=== PATIENT | female | born 1955 | race Caucasian/White ===

== ENCOUNTER 2017-09-12 09:28 | Inpatient (IN) | payer OTHER ==
[2017-09-12 15:07] LABS: Granulocyte Absolute (ANC) 4.45 (1.4-6.9); Hematocrit 48.1 % (35-47); Mean Cell Volume 103.2 fl (78-100); Mean Corpuscular Hemoglobin 34.3 pg (26-32); Mean Corpuscular Hgb Concent. 33.3 g/dl (32-36); Mean Platelet Volume 11.8 fl (6-9.5); Platelet Count 52 K/mm3 (150-450); Red Blood Count 4.66 M/mm3 (4.1-5.4); Red Cell Distribution Width 18.6 % (11.5-14.0)
[2017-09-12] MEDS ORDERED: TYLENOL 325 MG PO PRN (15:15)
[2017-09-12] MEDS ORDERED: Sodium Chloride 0.9% 10 ML FLUSH Syringe IJ PRN (15:15)
[2017-09-12] MEDS ORDERED: NovoLOG Insulin SQ PRN (15:17)
[2017-09-12] MEDS ORDERED: ENOXAPARIN SODIUM SQ SCH (15:30)
[2017-09-12 15:45] LABS: ALBUMIN 3.5 g/dL (3.5-5.0); ANION GAP 13.1 MEQ/L (5-15); BILIRUBIN,TOTAL 1.1 mg/dL (0.2-1.3); Calcium 11.5 mg/dL (8.4-10.2); Creatinine 1 1.08 mg/dL (0.52-1.04); Potassium 3.6 mmol/L (3.5-5.1); Total Protein 7.2 g/dL (6.3-8.2)
[2017-09-12 15:54] LABS: NT PRO BNP 56.8 pg/mL (0-900)
[2017-09-12] MEDS ORDERED: BUMEX 1 MG IV ONE (16:12)
[2017-09-12] MEDS ORDERED: NON-FORMULARY ITEM (Oxycodone Hcl/Acetaminophen [Percocet 7.5-325 Mg Tablet] 1 EACH) PO PRN (17:28)
[2017-09-12 18:31] LABS: Eosinophil 2 % (0.00-3.0); Lymphocytes 19 % (24-44); Monocyte 6 % (0.0-12.0); Neutrophils 73 % (36.0-66.0); Platelet Estimate DECREASED (NORMAL); Total Cells Counted 100
[2017-09-12] MEDS ORDERED: PERCOCET TABLET 5/325MG ONE ×2 (19:47→23:03)
[2017-09-12] MEDS: PERCOCET TABLET 5/325MG PO PRN ×2 (19:48→23:32)
[2017-09-12] MEDS ORDERED: NEURONTIN 300 MG ONE (20:58)
[2017-09-12] MEDS ORDERED: Glucophage XR 500 MG PO ONE (20:58)
[2017-09-12] MEDS ORDERED: Zanaflex 4 MG ONE (20:58)
[2017-09-12] MEDS ORDERED: ZOCOR 20MG ONE (20:59)
[2017-09-12] MEDS ORDERED: NEURONTIN 300 MG PO SCH (22:00)
[2017-09-12] MEDS ORDERED: NON-FORMULARY ITEM (Metformin Hcl [Metformin Hcl Er] 500 MG) PO SCH (22:00)
[2017-09-12] MEDS ORDERED: NON-FORMULARY ITEM (Gabapentin [Gabapentin] 600 MG) PO SCH (22:00)
[2017-09-12] MEDS ORDERED: Zanaflex 4 MG PO SCH (22:00)
[2017-09-12] MEDS ORDERED: ZOCOR 20MG PO SCH (22:00)
[2017-09-12] MEDS ORDERED: Glucophage XR 500 MG PO SCH (22:00)
[2017-09-12] MEDS: Sodium Chloride 0.9% 10 ML FLUSH Syringe IJ SCH (22:39)
[2017-09-13] MEDS ORDERED: PERCOCET TABLET 5/325MG ONE (05:24)
[2017-09-13] MEDS: Sodium Chloride 0.9% 10 ML FLUSH Syringe IJ SCH ×3 (05:27→21:53)
[2017-09-13] MEDS: PERCOCET TABLET 5/325MG PO PRN ×3 (05:28→21:52)
[2017-09-13 05:51] LABS: BASOPHIL % 0.8 % (0.0-0.4); Basophil (Absolute #) 0.03 (0-0.4); Eosinophil % 2.8 % (0.00-5.0); Eosinophil (Absolute #) 0.11 (0-0.5); Granulocyte Absolute (ANC) 2.36 (1.4-6.9); Granulocytes % 60.6 % (36.0-66.0); Hematocrit 38.5 % (35-47); Hemoglobin 13.3 gm/dl (12.0-16.0); Lymphocyte (Absolute #) 1.09 (1.0-4.6); Lymphocytes % 27.9 % (24.0-44.0); Mean Cell Volume 102.4 fl (78-100); Mean Corpuscular Hgb Concent. 34.5 g/dl (32-36); Mean Platelet Volume 12.2 fl (6-9.5); Monocyte (Absolute #) 0.31 (0.0-1.3); Monocytes % 7.9 % (0.0-12.0); Platelet Count 43 K/mm3 (150-450); Red Blood Count 3.76 M/mm3 (4.1-5.4); Red Cell Distribution Width 18.1 % (11.5-14.0); White Blood Count 3.9 K/mm3 (4.0-10.5)
[2017-09-13 05:52] LABS: Mean Corpuscular Hemoglobin 35.3 pg (26-32)
[2017-09-13 06:07] LABS: BLOOD UREA NITROGEN 8 mg/dL (7-17); CHLORIDE 106 mmol/L (98-107); Calcium 10.7 mg/dL (8.4-10.2); Carbon Dioxide 29 mmol/L (22-30); Creatinine 1 0.98 mg/dL (0.52-1.04); Glucose 174 mg/dL (74-106); Potassium 3.8 mmol/L (3.5-5.1); SODIUM 139 mmol/L (137-145)
[2017-09-13] MEDS ORDERED: SYNTHROID 75 MCG PO SCH ×2 (06:30→10:00)
[2017-09-13] MEDS ORDERED: SYNTHROID 150 MCG PO SCH ×2 (06:30→10:00)
[2017-09-13] MEDS ORDERED: TYLENOL 325 MG PO PRN (07:12)
[2017-09-13] MEDS ORDERED: NovoLOG Insulin SQ PRN (07:14)
[2017-09-13] MEDS ORDERED: Sodium Chloride 0.9% 10 ML FLUSH Syringe IJ PRN ×2 (07:15)
[2017-09-13 08:11] LABS: Slide Review 1 YES
--- NOTE | 2017-09-13 08:57 | PCM.NOTE ---
Date and Time: 09/13/17 0857 OBJECTIVE DATA Vital Signs: Vital Signs - 24 hr Temp Pulse Resp BP Pulse Ox 09/13/17 07:22 96.1 F 50 L 18 107/63 90 L 09/13/17 04:00 97.9 F 65 19 106/67 90 L 09/13/17 00:00 97.7 F 80 19 137/75 92 L 09/12/17 19:43 97.9 F 75 16 146/64 94 L 09/12/17 16:20 98.0 F 68 18 118/65 91 L 09/12/17 14:35 97.6 F 85 18 162/81 96 09/12/17 14:29 97.6 F 85 18 162/81 96 09/12/17 14:20 97.6 F 85 18 162/81 96 Oxygen-Last 24 hours O2 Percentage 2 Liters = 28% O2 Percentage 2 Liters = 28% Pain Assessment - Last Documented Pain Intensity 5 Pain Scale Used 0-10 Pain Scale,FLACC Intake and Output: Intake & Output 09/11/17 09/12/17 09/13/17 09/14/17 06:59 06:59 06:59 06:59 Intake Total 600 Output Total 1000 Balance -400 Weight 165.1 kg Lab Results: Accuchecks Date 09/12/17 Date 09/12/17 Date 09/12/17 Time 07:30 Time 22:00 Time 16:30 Accucheck Value: 160 Accucheck Value: 177 Accucheck Value: 146 Lab Results-Last 24 Hours 09/12/17 09/12/17 09/12/17 Range/Units 15:00 15:00 15:00 WBC 6.0 (4.0-10.5) K/mm3 RBC 4.66 (4.1-5.4) M/mm3 Hgb 16.0 (12.0-16.0) gm/dl Hct 48.1 H (35-47) % MCV 103.2 H (78-100) fl MCH 34.3 H (26-32) pg MCHC 33.3 (32-36) g/dl RDW 18.6 H (11.5-14.0) % Plt Count 52 L (150-450) K/mm3 MPV 11.8 H (6-9.5) fl Gran % (36.0-66.0) % Eos # (Auto) (0-0.5) Absolute Lymphs (auto) (1.0-4.6) Absolute Monos (auto) (0.0-1.3) Lymphocytes % (24.0-44.0) % Monocytes % (0.0-12.0) % Eosinophils % (0.00-5.0) % Basophils % (0.0-0.4) % Absolute Granulocytes 4.45 (1.4-6.9) Segmented Neutrophils 73 H (36.0-66.0) % Lymphocytes (Manual) 19 L (24-44) % Monocytes (Manual) 6 (0.0-12.0) % Eosinophils (Manual) 2 (0.00-3.0) % Basophils # (0-0.4) Platelet Estimate DECREASED (NORMAL) RBC Morphology NORMAL Sodium 141 (137-145) mmol/L Potassium 3.6 (3.5-5.1) mmol/L Chloride 105 (98-107) mmol/L Carbon Dioxide 27 (22-30) mmol/L Anion Gap 13.1 (5-15) MEQ/L BUN 8 (7-17) mg/dL Creatinine 1.08 H (0.52-1.04) mg/dL Estimated GFR 54.3 ML/MIN Glucose 196 H (74-106) mg/dL Hemoglobin A1c (4.5-6.0) % Calcium 11.5 H (8.4-10.2) mg/dL Total Bilirubin 1.10 (0.2-1.3) mg/dL AST 34 (14-36) U/L ALT 19 (0-35) U/L Alkaline Phosphatase 142 H (38-126) U/L NT-Pro-B Natriuret Pep 56.8 (0-900) pg/mL Serum Total Protein 7.2 (6.3-8.2) g/dL Albumin 3.5 (3.5-5.0) g/dL TSH 3rd Generation 254.000 H (0.47-4.68) mIU/L Slides for Path Review 09/12/17 09/13/17 09/13/17 Range/Units 15:00 05:12 05:12 WBC 3.9 L (4.0-10.5) K/mm3 RBC 3.76 L (4.1-5.4) M/mm3 Hgb 13.3 (12.0-16.0) gm/dl Hct 38.5 (35-47) % MCV 102.4 H (78-100) fl MCH 35.3 H (26-32) pg MCHC 34.5 (32-36) g/dl RDW 18.1 H (11.5-14.0) % Plt Count 43 L (150-450) K/mm3 MPV 12.2 H (6-9.5) fl Gran % 60.6 (36.0-66.0) % Eos # (Auto) 0.11 (0-0.5) Absolute Lymphs (auto) 1.09 (1.0-4.6) Absolute Monos (auto) 0.31 (0.0-1.3) Lymphocytes % 27.9 (24.0-44.0) % Monocytes % 7.9 (0.0-12.0) % Eosinophils % 2.8 (0.00-5.0) % Basophils % 0.8 (0.0-0.4) % Absolute Granulocytes 2.36 (1.4-6.9) Segmented Neutrophils (36.0-66.0) % Lymphocytes (Manual) (24-44) % Monocytes (Manual) (0.0-12.0) % Eosinophils (Manual) (0.00-3.0) % Basophils # 0.03 (0-0.4) Platelet Estimate (NORMAL) RBC Morphology Sodium 139 (137-145) mmol/L Potassium 3.8 (3.5-5.1) mmol/L Chloride 106 (98-107) mmol/L Carbon Dioxide 29 (22-30) mmol/L Anion Gap 8.0 (5-15) MEQ/L BUN 8 (7-17) mg/dL Creatinine 0.98 (0.52-1.04) mg/dL Estimated GFR > 60.0 ML/MIN Glucose 174 H (74-106) mg/dL Hemoglobin A1c 9.68 H (4.5-6.0) % Calcium 10.7 H (8.4-10.2) mg/dL Total Bilirubin (0.2-1.3) mg/dL AST (14-36) U/L ALT (0-35) U/L Alkaline Phosphatase (38-126) U/L NT-Pro-B Natriuret Pep (0-900) pg/mL Serum Total Protein (6.3-8.2) g/dL Albumin (3.5-5.0) g/dL TSH 3rd Generation (0.47-4.68) mIU/L Slides for Path Review YES
[2017-09-13] MEDS ORDERED: Protonix 40MG Tablet PO SCH (10:00)
[2017-09-13] MEDS ORDERED: NON-FORMULARY ITEM (Simvastatin 40 Mg [Zocor 40 Mg] 40 MG) PO SCH (10:00)
[2017-09-13] MEDS ORDERED: NON-FORMULARY ITEM (Omeprazole 20 Mg [Prilosec 20 Mg] 20 MG) PO SCH (10:00)
[2017-09-13] MEDS ORDERED: SYNTHROID 88 MCG PO SCH (10:00)
[2017-09-13] MEDS ORDERED: Glucotrol Xl 10 MG PO SCH (10:00)
[2017-09-13] MEDS ORDERED: Klor Con 10 MEQ PO SCH (10:00)
[2017-09-13] MEDS ORDERED: Colace 100 MG PO SCH (10:00)
[2017-09-13] MEDS ORDERED: Paxil 20 MG PO SCH (10:00)
[2017-09-13] MEDS: Glucotrol Xl 10 MG PO SCH (10:17)
[2017-09-13] MEDS: Paxil 20 MG PO SCH (10:17)
[2017-09-13] MEDS: Colace 100 MG PO SCH (10:17)
[2017-09-13] MEDS: NEURONTIN 300 MG PO SCH ×4 (10:17→21:51)
[2017-09-13] MEDS: Klor Con 10 MEQ PO SCH (10:17)
--- NOTE | 2017-09-13 13:33 | HP ---
HISTORY OF PRESENT ILLNESS: This is a 62 year-old patient of mine who presented to the clinic on 09/12/2017. She came with her . They reported increasing problems with lower extremity edema and blisters. She was seen in the [facility] Emergency Department for this on 09/09/2017 and reports they gave her antibiotic which they were not sure what it was. I later obtained records from [facility] Emergency Room that said she was placed on Clindamycin and told that she had cellulitis. She was sent home. She has home health care at home right now from [facility]. A message had been left from Soo from there wanting a wound care referral for her on 09/11/2017. Also reporting that she had a fall and the EMT's had to come and get her up off the floor. The home health care nurse stated that Delmy was not getting the care that she needs, not checking her blood sugar, not making it to the bathroom regularly and not getting proper nutrition. They also stated that home health care is not being reimbursed by the insurance company and they may have to discharge her for this reason. The patient and her reported that the blisters on both of her feet have gotten bigger. They are on the top of her feet. She denied any fever. She has not had any drainage from her feet but had a little drainage from the lateral side of her left leg. The patient reported that she had fallen twice at home and that her equilibrium seemed to be off and she is unable to stand on her own. The patient reports that she has both a walker and a wheelchair at home. She also reported that she had some diarrhea at home and states that it was just for one day and before that she had not had problems with diarrhea. The patient reports that her medications come in blister packs and that she has been taking them but they do have a hard time giving a list of her current medication. We were able to obtain a list from her pharmacy and our clinic chart. REVIEW OF SYSTEMS: The patient reports she has chronic pain in her knees, back and all over for which she sees painter mirror for here at [facility] and they are prescribing her current pain medications. She has fatigue, dry skin. No chest pain. Shortness of breath with exertion. Edema of her lower extremities. No difficulty urinating. She had large blisters on her feet. PAST MEDICAL HISTORY: Arthritis in her knees. Coronary artery disease with myocardial infarction in November 2010. She has seen Dr. Holland in the past. Diabetes mellitus type 2 uncontrolled. Fibromyalgia. Hypertension. Hypothyroidism. Obesity. Gastroesophageal reflux disease. Chronic knee and back pain. History of thrombocytopenia which she is seeing Dr. Hearn for. Osteoporosis on DEXA scan 01/11/2017. Hyperparathyroidism for which she sees spray cementer, Dr. Adrien Daniel in [place], [place]. Neuropathy. PAST SURGICAL HISTORY: section. Cholecystectomy. Hysterectomy. Bilateral oophorectomy. Left knee replacement 07/29/2015. Right knee replacement 1988. Gastroplasty. MEDICATIONS: Bumetanide 2 mg every day, Clindamycin 300 mg four times a day, gabapentin 600 mg four times a day, Glipizide Extended Release 10 mg daily, levothyroxine 375 mcg daily, Metformin Extended Release 1 tablet twice a day, naproxen 500 mg t.i.d., Nitrostat 0.4 mg sublingual every 5 minutes as needed for pain with maximum of three doses, Nystatin powder to the affected area b.i.d., omeprazole 20 mg p.o. daily, oxycodone with acetaminophen 7.5/325 mg 1 tablet every six hours as needed, paroxetine 20 mg p.o. daily, potassium chloride 10 mEq daily, Simvastatin 40 mg daily, tizanidine 4 mg b.i.d., Ventolin HFA 2 puffs every four hours as needed, vitamin D 50,000 units p.o. daily. ALLERGIES: DURAGESIC, LOMOTIL, PENICILLIN. SOCIAL HISTORY: She is and lives with her . She smokes one pack per day. She denies any alcohol or drug use. She states she has no interest in quitting smoking as this is the only thing she has left. FAMILY HISTORY: Noncontributory. PHYSICAL EXAMINATION: VITAL SIGNS: Temperature current 96.1F, temperature max 98.0F, heart rate 50 to 85, respiratory rate 16 to 19, blood pressure 106 to 162 over 63 to 81. Oxygen saturation 90 to 96% on room air to 2 liters nasal cannula. GENERAL: The patient is a pleasant lady sitting up in bed in no acute distress. She is morbidly obese. CVS: She has a regular rate and rhythm. No murmurs, gallops or rubs. CHEST: Clear to auscultation bilaterally with decreased breath sounds at the bases. No crackles or wheezes are appreciated. ABDOMEN: Obese, soft, nontender, nondistended with normal bowel sounds. EXTREMITIES: She has +1 edema to her knees bilaterally. Thick and dry skin. Long thickened toenails. There are pictures on her chart of the blisters on top of her feet bilaterally. These were debrided by PT yesterday and pictures taken afterwards as well. These blisters are quite large measuring 12 x 9 cm on top of her right foot and 6 x 4.5 cm on the left foot. Her left lower leg has some serous drainage from the small scratch on the lateral aspect of her calf. LABORATORY DATA AND TESTS: White blood cell count was 6.0 on admission and 3.9 this a.m. PLT count 43,000. Hemoglobin A1C 9.6, calcium 10.7. TSH 254. She has a wound culture in lab from the top of the left foot. ASSESSMENT AND PLAN: 1) SEVERE HYPOTHYROIDISM WITH MYXEDEMA OF HER LOWER EXTREMITIES MOST LIKELY RESULTING IN THE SKIN BULLAE: Her TSH has been high for about two years now and at one time we were able to get it lowered. In the past she had told me she was not taking her medications. She was given 375 mcg of levothyroxine this a.m. an hour before eating or taking any other medications with a small sip of fluid. Will continue with the levothyroxine. I sent blood tests to screen for celiac disease to check for malabsorption. I discontinued her proton pump inhibitor. It may have interfering with her absorption if she was taking her medications. She has seen an spray cementer as an outpatient and will have her continue to follow up with him when she is able to. 2) SKIN BULLAE: PT was consulted and saw the patient and debrided these as they were quite large and tense. They are covered with dressing. Will continue to monitor for any changes. Her white blood cell count was normal. She has not had any fevers. No other signs of cellulitis so I discontinued any antibiotics at this time. 3) HISTORY OF DIARRHEA: I have ordered Clostridium difficile but this is uncollected as she has not had any more diarrhea at this time. 4) UNSTEADY GAIT: PT again was consulted. The patient does state she has a trouble taking care of herself at home and is thinking about long-term placement in a custodial where she can have help with her care. 5) DIABETES MELLITUS TYPE 2: She is uncontrolled. She has been noncompliant in the past. Her hemoglobin A1C continues to be elevated. Will use a low dose of NovoLog sliding scale and glipizide and hold her Metformin at this time. 6) HYPERPARATHYROIDISM: She has a known diagnosis of this with adenomas. Food Processing Scientist has been trying to coordinate with a surgeon for removal of the adenoma but this has not been accomplished yet at this time. 7) CHRONIC PAIN IN HER KNEES AND BACK: Will continue with her home pain medication. 8) HYPERTENSION: This is currently well controlled. 9) HISTORY OF CORONARY ARTERY DISEASE: Will continue with her home medications. 10) HISTORY OF THROMBOCYTOPENIA: She has been following with Dr. Hearn as an outpatient and her PLT count has been stable and holding Lovenox for deep venous thrombosis prophylaxis due to lower PLT count. She does not have any signs of bleeding at this time.
[2017-09-13] MEDS: Zanaflex 4 MG PO SCH (21:51)
[2017-09-13] MEDS: ZOCOR 20MG PO SCH (21:52)
[2017-09-14] MEDS: SYNTHROID 75 MCG PO SCH (05:47)
[2017-09-14] MEDS: SYNTHROID 150 MCG PO SCH (05:47)
[2017-09-14 06:53] LABS: ANION GAP 8.3 MEQ/L (5-15); BLOOD UREA NITROGEN 10 mg/dL (7-17); CHLORIDE 107 mmol/L (98-107); Carbon Dioxide 28 mmol/L (22-30); Creatinine 1 0.86 mg/dL (0.52-1.04); Glucose 105 mg/dL (74-106); Potassium 4.2 mmol/L (3.5-5.1); SODIUM 139 mmol/L (137-145)
[2017-09-14] MEDS: NEURONTIN 300 MG PO SCH ×4 (09:22→22:31)
[2017-09-14] MEDS: Sodium Chloride 0.9% 10 ML FLUSH Syringe IJ SCH ×3 (09:23→22:32)
[2017-09-14] MEDS: Paxil 20 MG PO SCH (09:23)
[2017-09-14] MEDS: Klor Con 10 MEQ PO SCH (09:23)
[2017-09-14] MEDS: Colace 100 MG PO SCH (09:23)
[2017-09-14] MEDS: Glucotrol Xl 10 MG PO SCH (09:23)
--- NOTE | 2017-09-14 09:47 | PCM.NOTE ---
Date and Time: 09/14/17940 Subjective Assessment: Patient reports pain over the top of her feet where the blisters were debrided by PT. She reports a poor appetite today. Discharge planning states we are waiting to hear from [facility] about placement there for further care. - Review of Systems Constitutional: Fatigue Eyes: No Symptoms Ears, Nose, & Throat: No Symptoms Respiratory: No Symptoms Cardiac: No Symptoms Abdominal/Gastrointestinal: No Symptoms Genitourinary Symptoms: No Symptoms Musculoskeletal: No Symptoms Skin: Other (pain on top of feet) Objective Exam General Appearance: no apparent distress, obese Neurologic Exam: alert, cooperative, normal mood/affect Skin Exam: normal color, warm, other (large denuded areas on top of feet bilat ( see pictures in chart) no surrounding erythema; chronic discoloration of lower extremities bilat) Respiratory Exam: normal breath sounds, other (few scattered wheezes, equal breath sounds) Cardiovascular Exam: regular rate/rhythm, normal heart sounds, No murmur, No friction rub, No gallop Gastrointestinal/Abdomen Exam: soft, normal bowel sounds, No tenderness, No distention, No mass, No guarding Extremity Exam: other (+2 edema to mid shins bilat) OBJECTIVE DATA Vital Signs: Vital Signs - 24 hr Temp Pulse Resp BP Pulse Ox 09/14/17 07:22 98.4 F 54 L 20 145/68 95 09/14/17 04:00 97.7 F 53 L 18 134/79 94 L 09/14/17 00:00 98.1 F 54 L 14 127/75 96 09/13/17 22:00 147/71 09/13/17 21:34 94 L 09/13/17 20:00 97.4 F 95 H 16 171/82 95 09/13/17 16:00 97.6 F 56 L 19 136/82 94 L 09/13/17 12:00 97.5 F 59 L 20 122/67 93 L Oxygen-Last 24 hours O2 Percentage 2 Liters = 28% O2 Percentage 2 Liters = 28% O2 Percentage 2 Liters = 28% O2 Percentage 2 Liters = 28% O2 Percentage 2 Liters = 28% Pain Assessment - Last Documented Pain Intensity 4 Pain Scale Used 0-10 Pain Scale Intake and Output: Intake & Output 09/12/17 09/13/17 09/14/17 09/15/17 06:59 06:59 06:59 06:59 Intake Total 600 640 360 Output Total 1000 Balance -400 640 360 Weight 165.1 kg Lab Results: Accuchecks Date 09/14/17 Date 09/13/17 Date 09/13/17 Date 09/13/17 Time 07:42 Time 23:00 Time 16:30 Time 11:52 Accucheck Value: 94 Accucheck Value: 85 Accucheck Value: 168 Accucheck Value: 160 Lab Results-Last 24 Hours 09/14/17 Range/Units 05:15 Sodium 139 (137-145) mmol/L Potassium 4.2 (3.5-5.1) mmol/L Chloride 107 (98-107) mmol/L Carbon Dioxide 28 (22-30) mmol/L Anion Gap 8.3 (5-15) MEQ/L BUN 10 (7-17) mg/dL Creatinine 0.86 (0.52-1.04) mg/dL Estimated GFR > 60.0 ML/MIN Glucose 105 (74-106) mg/dL Calcium 11.0 H (8.4-10.2) mg/dL Multi-Disciplinary Progress Notes: Multi-Disciplinary Progress Notes 09/13/17 16:00 (created 09/14/17 08:28) Case Management Note by Yajaira Ricketts FROM [facility], REPORTS THAT THEY ARE PLANNING TO ACCEPT PT PROVIDING THAT HER INSURANCE WILL AUTHORIZE A STAY. Initialized on 09/14/17 08:28 - END OF NOTE 09/13/17 14:40 (created 09/13/17 15:55) Case Management Note by Yajaira Ricketts from [facility] here for assessment. Initialized on 09/13/17 15:55 - END OF NOTE 09/13/17 13:54 Case Management Note by Kaylee Elaine LEVEL I WEB APPROVED AND PLACED ON PAPER CHART. Initialized on 09/13/17 13:54 - END OF NOTE Assessment/Plan (1) Severe hypothyroidism Current Visit: Yes Status: Acute Assessment & Plan: Levothyroxine has been restarted and patient to get this 1 hour before breakfast or any other medications or fluids. Plan to recheck TSH 3-4 weeks. Code(s): E03.8 - OTHER SPECIFIED HYPOTHYROIDISM (2) Skin bulla Current Visit: Yes Status: Acute Assessment & Plan: s/p debridement. Continue care by PT. Code(s): R23.8 - OTHER SKIN CHANGES (3) Unsteady gait Current Visit: Yes Status: Acute Assessment & Plan: PT has accessed patient. Code(s): R26.81 - UNSTEADINESS ON FEET (4) DM w/o complication type II Current Visit: Yes Status: Acute Assessment & Plan: continue novolog low dose sliding scale. Continue glipizide. Metformin currently held. Code(s): E11.9 - TYPE 2 DIABETES MELLITUS WITHOUT COMPLICATIONS (5) Hyperparathyroidism Current Visit: Yes Status: Acute Assessment & Plan: She has been seeing Professor Of Forest Planning, Dr. Daniel as outpatient. Code(s): E21.3 - HYPERPARATHYROIDISM, UNSPECIFIED (6) Chronic pain of both knees Current Visit: Yes Status: Acute Code(s): M25.561 - PAIN IN RIGHT KNEE; M25.562 - PAIN IN LEFT KNEE; G89.29 - OTHER CHRONIC PAIN (7) Essential hypertension Current Visit: Yes Status: Acute Code(s): I10 - ESSENTIAL (PRIMARY) HYPERTENSION (8) Myxedema Current Visit: Yes Status: Acute Code(s): E03.9 - HYPOTHYROIDISM, UNSPECIFIED (9) History of thrombocytopenia Current Visit: Yes Status: Acute Code(s): Z86.2 - PRSNL HISTORY OF DIS OF THE BLD/BLD-FORM ORG/IMMUN MECHNSM
[2017-09-14 09:49] LABS: IGA QUANTITATIVE 475 mg/dL (70-400)
[2017-09-14 16:03] LABS: T-TRANSGLUTAMINASE IGA <0.5 U/mL (0.0-14.9)
[2017-09-14] MEDS: ZOCOR 20MG PO SCH (22:30)
[2017-09-14] MEDS: Zanaflex 4 MG PO SCH (22:31)
[2017-09-15] MEDS ORDERED: D50W 50 ml Abboject IV PRN (01:38)
[2017-09-15 06:20] LABS: ANION GAP 8.3 MEQ/L (5-15); BLOOD UREA NITROGEN 9 mg/dL (7-17); CHLORIDE 107 mmol/L (98-107); Calcium 11.3 mg/dL (8.4-10.2); Carbon Dioxide 30 mmol/L (22-30); Creatinine 1 0.79 mg/dL (0.52-1.04); Glucose 74 mg/dL (74-106); SODIUM 141 mmol/L (137-145)
[2017-09-15] MEDS: SYNTHROID 150 MCG PO SCH (06:38)
[2017-09-15] MEDS: Sodium Chloride 0.9% 10 ML FLUSH Syringe IJ SCH ×3 (06:38→22:16)
[2017-09-15] MEDS: SYNTHROID 75 MCG PO SCH (06:38)
--- NOTE | 2017-09-15 09:07 | PCM.NOTE ---
Date and Time: 09/15/17906 Subjective Assessment: Patient reports continued low appetite and pain over the tops of her feet. She had an episode of hypoglycemia last night that required an amp of D50. She states nothing looks good to eat. She denies any abdominal pain, no shortness of breath, no chest pain. - Review of Systems Constitutional: No Symptoms Eyes: No Symptoms Ears, Nose, & Throat: No Symptoms Respiratory: No Symptoms Cardiac: No Symptoms Abdominal/Gastrointestinal: No Symptoms Genitourinary Symptoms: No Symptoms Musculoskeletal: Other (swelling of lower extremities with very mild redness) Skin: Other (bandage over top of feet bilat) Objective Exam General Appearance: no apparent distress, obese Neurologic Exam: alert, cooperative, normal mood/affect Skin Exam: normal color, warm, other (bandage over top of feet bilat, mild erythema of feet from ankles to knees) Cardiovascular Exam: regular rate/rhythm, No murmur, No friction rub, No gallop Gastrointestinal/Abdomen Exam: soft, normal bowel sounds, No tenderness, No distention, No mass OBJECTIVE DATA Vital Signs: Vital Signs - 24 hr Temp Pulse Resp BP Pulse Ox 09/15/17 07:21 56 L 16 96 09/15/17 07:15 98.2 F 66 20 116/58 96 09/15/17 04:00 97.7 F 52 L 20 126/65 94 L 09/15/17 00:00 97.6 F 53 L 18 106/64 93 L 09/14/17 20:33 93 L 09/14/17 20:00 98.4 F 52 L 18 141/78 93 L 09/14/17 16:30 98 F 74 20 157/80 93 L 09/14/17 12:27 97.8 F 68 20 163/88 94 L Oxygen-Last 24 hours O2 Percentage 2 Liters = 28% O2 Percentage 2 Liters = 28% O2 Percentage 2 Liters = 28% Pain Assessment - Last Documented Pain Intensity 0 Pain Scale Used 0-10 Pain Scale Intake and Output: Intake & Output 09/13/17 09/14/17 09/15/17 09/16/17 06:59 06:59 06:59 06:59 Intake Total 600 640 980 240 Output Total 1000 1200 1000 Balance -400 640 -220 -760 Weight 165.1 kg 165.5 kg Lab Results: Accuchecks Date 09/15/17 Date 09/15/17 Date 09/15/17 Date 09/14/17 Date 09/14/17 Time 07:27 Time 03:30 Time 00:23 Time 16:09 Time 12:21 Accucheck Value: 69 Accucheck Value: 83 Accucheck Value: 67 Accucheck Value: 67 Accucheck Value: 70 Accucheck Value: 77 Lab Results-Last 24 Hours 09/13/17 09/15/17 Range/Units 05:12 05:18 Sodium 141 (137-145) mmol/L Potassium 4.0 (3.5-5.1) mmol/L Chloride 107 (98-107) mmol/L Carbon Dioxide 30 (22-30) mmol/L Anion Gap 8.3 (5-15) MEQ/L BUN 9 (7-17) mg/dL Creatinine 0.79 (0.52-1.04) mg/dL Estimated GFR > 60.0 ML/MIN Glucose 74 (74-106) mg/dL Calcium 11.3 H (8.4-10.2) mg/dL IgA 475 H (70-400) mg/dL Tiss Transglutamin IgA <0.5 (0.0-14.9) U/mL Assessment/Plan (1) Severe hypothyroidism Current Visit: Yes Status: Acute Assessment & Plan: Continue levothyroxine 1 hour before other meds or breakfast. Plan to recheck TSH in 3-6 weeks. Code(s): E03.8 - OTHER SPECIFIED HYPOTHYROIDISM (2) Skin bulla Current Visit: Yes Status: Acute Assessment & Plan: Continue with PT. Code(s): R23.8 - OTHER SKIN CHANGES (3) Unsteady gait Current Visit: Yes Status: Acute Assessment & Plan: Continue with PT. Code(s): R26.81 - UNSTEADINESS ON FEET (4) DM w/o complication type II Current Visit: Yes Status: Acute Assessment & Plan: Oral hypoglycemics stopped. She has a low dose sliding scale ordered as needed. Code(s): E11.9 - TYPE 2 DIABETES MELLITUS WITHOUT COMPLICATIONS (5) Hyperparathyroidism Current Visit: Yes Status: Acute Assessment & Plan: She has been seen by Dr. Daniel in [place] and was referred for surgery, but she has not had this done yet. Code(s): E21.3 - HYPERPARATHYROIDISM, UNSPECIFIED (6) Chronic pain of both knees Current Visit: Yes Status: Acute Assessment & Plan: Continue current pain medication. Code(s): M25.561 - PAIN IN RIGHT KNEE; M25.562 - PAIN IN LEFT KNEE; G89.29 - OTHER CHRONIC PAIN (7) Essential hypertension Current Visit: Yes Status: Acute Code(s): I10 - ESSENTIAL (PRIMARY) HYPERTENSION (8) Myxedema Current Visit: Yes Status: Acute Code(s): E03.9 - HYPOTHYROIDISM, UNSPECIFIED (9) History of thrombocytopenia Current Visit: Yes Status: Acute Assessment & Plan: Stable and at her baseline. No lovenox for DVT prophylaxis due to this. Code(s): Z86.2 - PRSNL HISTORY OF DIS OF THE BLD/BLD-FORM ORG/IMMUN MECHNSM
[2017-09-15 09:39] LABS: BASOPHIL % 0.5 % (0.0-0.4); Basophil (Absolute #) 0.02 (0-0.4); Eosinophil % 1.8 % (0.00-5.0); Eosinophil (Absolute #) 0.08 (0-0.5); Granulocyte Absolute (ANC) 2.87 (1.4-6.9); Granulocytes % 65.4 % (36.0-66.0); Hematocrit 43.8 % (35-47); Hemoglobin 14.6 gm/dl (12.0-16.0); Lymphocyte (Absolute #) 1.08 (1.0-4.6); Lymphocytes % 24.6 % (24.0-44.0); Mean Cell Volume 103.5 fl (78-100); Mean Corpuscular Hemoglobin 34.5 pg (26-32); Mean Corpuscular Hgb Concent. 33.3 g/dl (32-36); Mean Platelet Volume 11.5 fl (6-9.5); Monocyte (Absolute #) 0.34 (0.0-1.3); Monocytes % 7.7 % (0.0-12.0); Platelet Count 44 K/mm3 (150-450); Red Blood Count 4.23 M/mm3 (4.1-5.4); Red Cell Distribution Width 18.3 % (11.5-14.0); White Blood Count 4.4 K/mm3 (4.0-10.5)
[2017-09-15] MEDS: Paxil 20 MG PO SCH (09:47)
[2017-09-15] MEDS: Colace 100 MG PO SCH (09:47)
[2017-09-15] MEDS: NEURONTIN 300 MG PO SCH ×4 (09:47→22:11)
[2017-09-15] MEDS: PERCOCET TABLET 5/325MG PO PRN ×3 (09:50→22:13)
[2017-09-15] MEDS: ZOCOR 20MG PO SCH (22:11)
[2017-09-15] MEDS: Zanaflex 4 MG PO SCH (22:11)
[2017-09-16] MEDS: SYNTHROID 150 MCG PO SCH (05:31)
[2017-09-16] MEDS: Sodium Chloride 0.9% 10 ML FLUSH Syringe IJ SCH ×3 (05:31→21:51)
[2017-09-16] MEDS: SYNTHROID 75 MCG PO SCH (05:31)
[2017-09-16 05:53] LABS: BASOPHIL % 0.7 % (0.0-0.4); Basophil (Absolute #) 0.03 (0-0.4); Eosinophil % 1.4 % (0.00-5.0); Eosinophil (Absolute #) 0.06 (0-0.5); Granulocyte Absolute (ANC) 2.75 (1.4-6.9); Hematocrit 40.4 % (35-47); Hemoglobin 13.3 gm/dl (12.0-16.0); Lymphocyte (Absolute #) 1.12 (1.0-4.6); Lymphocytes % 25.7 % (24.0-44.0); Mean Cell Volume 104.1 fl (78-100); Mean Corpuscular Hgb Concent. 32.9 g/dl (32-36); Monocytes % 9.2 % (0.0-12.0); Platelet Count 42 K/mm3 (150-450); Red Blood Count 3.88 M/mm3 (4.1-5.4); Red Cell Distribution Width 17.9 % (11.5-14.0); White Blood Count 4.4 K/mm3 (4.0-10.5)
[2017-09-16 05:57] LABS: Mean Corpuscular Hemoglobin 34.2 pg (26-32)
[2017-09-16 06:15] LABS: ANION GAP 6.1 MEQ/L (5-15); BLOOD UREA NITROGEN 9 mg/dL (7-17); CHLORIDE 107 mmol/L (98-107); Calcium 10.7 mg/dL (8.4-10.2); Carbon Dioxide 30 mmol/L (22-30); Creatinine 1 0.83 mg/dL (0.52-1.04); Glucose 118 mg/dL (74-106); Potassium 4.1 mmol/L (3.5-5.1); SODIUM 139 mmol/L (137-145)
[2017-09-16] MEDS: PERCOCET TABLET 5/325MG PO PRN (09:21)
[2017-09-16] MEDS: Paxil 20 MG PO SCH (09:21)
[2017-09-16] MEDS: Colace 100 MG PO SCH (09:21)
[2017-09-16] MEDS: NEURONTIN 300 MG PO SCH ×4 (09:21→21:50)
--- NOTE | 2017-09-16 09:34 | PCM.NOTE ---
Date and Time: 09/16/17928 Subjective Assessment: the pain in the feet and legs seems to be worsening and the legs are reported as more red hot and tender today. she has not had fever but feels nauseated and no appetite. She is not eating much Objective Exam General Appearance: no apparent distress, alert, obese Neurologic Exam: alert, oriented x 3, cooperative, normal mood/affect, nml cerebellar function, sensation nml, No motor deficits Skin Exam: normal color, warm, dry Eye Exam: PERRL, EOMI, eyes nml inspection Ears, Nose, Throat Exam: normal ENT inspection, pharynx normal, moist mucous membranes Neck Exam: normal inspection, non-tender, supple, full range of motion Respiratory Exam: normal breath sounds, lungs clear, No respiratory distress Cardiovascular Exam: regular rate/rhythm, normal heart sounds Gastrointestinal/Abdomen Exam: soft, No tenderness, No mass Extremity Exam: other (the dorsal aspect of the feet show good granulation tissue under the old blisters and the compression on them has helped improve the redness and swelling but the bilateral lower legs are reported as more red the are currently tender red swollen and hot bilaterally with blistering of the skin and chronic dermatitis changes.) Pelvic Exam: deferred Rectal Exam: deferred OBJECTIVE DATA Vital Signs: Vital Signs - 24 hr Temp Pulse Resp BP Pulse Ox 09/16/17 07:26 98.3 F 53 L 18 123/65 94 L 09/16/17 04:00 98.1 F 56 L 18 100/63 94 L 09/15/17 23:49 98.0 F 54 L 16 149/66 92 L 09/15/17 20:00 98.6 F 67 20 177/83 91 L 09/15/17 19:24 91 L 09/15/17 16:13 98.1 F 80 20 126/77 94 L 09/15/17 12:31 98.2 F 88 20 118/68 94 L Oxygen-Last 24 hours O2 Percentage 2 Liters = 28% O2 Percentage 2 Liters = 28% Pain Assessment - Last Documented Pain Intensity 8 Pain Scale Used 0-10 Pain Scale Intake and Output: Intake & Output 09/13/17 09/14/17 09/15/17 09/16/17 11:59 11:59 11:59 11:59 Intake Total 840 760 980 480 Output Total 1000 2200 1100 Balance -160 760 -1220 -620 Weight 165.1 kg 165.5 kg 163.6 kg Lab Results: Accuchecks Date 09/16/17 Date 09/15/17 Date 09/15/17 Date 09/15/17 Time 07:30 Time 22:00 Time 16:35 Time 11:00 Accucheck Value: 98 Accucheck Value: 100 Accucheck Value: 97 Accucheck Value: 90 Lab Results-Last 24 Hours 09/15/17 09/16/17 09/16/17 Range/Units 05:00 05:44 05:44 WBC 4.4 4.4 (4.0-10.5) K/mm3 RBC 4.23 3.88 L (4.1-5.4) M/mm3 Hgb 14.6 13.3 (12.0-16.0) gm/dl Hct 43.8 40.4 (35-47) % MCV 103.5 H 104.1 H (78-100) fl MCH 34.5 H 34.2 H (26-32) pg MCHC 33.3 32.9 (32-36) g/dl RDW 18.3 H 17.9 H (11.5-14.0) % Plt Count 44 L 42 L (150-450) K/mm3 MPV 11.5 H 11.0 H (6-9.5) fl Gran % 65.4 63.0 (36.0-66.0) % Eos # (Auto) 0.08 0.06 (0-0.5) Absolute Lymphs (auto) 1.08 1.12 (1.0-4.6) Absolute Monos (auto) 0.34 0.40 (0.0-1.3) Lymphocytes % 24.6 25.7 (24.0-44.0) % Monocytes % 7.7 9.2 (0.0-12.0) % Eosinophils % 1.8 1.4 (0.00-5.0) % Basophils % 0.5 0.7 (0.0-0.4) % Absolute Granulocytes 2.87 2.75 (1.4-6.9) Basophils # 0.02 0.03 (0-0.4) Sodium 139 (137-145) mmol/L Potassium 4.1 (3.5-5.1) mmol/L Chloride 107 (98-107) mmol/L Carbon Dioxide 30 (22-30) mmol/L Anion Gap 6.1 (5-15) MEQ/L BUN 9 (7-17) mg/dL Creatinine 0.83 (0.52-1.04) mg/dL Estimated GFR > 60.0 ML/MIN Glucose 118 H (74-106) mg/dL Calcium 10.7 H (8.4-10.2) mg/dL Slides for Path Review Multi-Disciplinary Progress Notes: Multi-Disciplinary Progress Notes 09/15/17 09:30 (created 09/15/17 12:19) Case Management Note by Yajaira Ricketts REVIEWED DISCHARGE PLAN WITH PT. REPORTS THAT SHE IS STILL PLANNING TO TRANSITION TO [facility] IF HER INSURANCE ALLOWS. CONTINUE TO AWAIT PRECERT. SPOKE WITH RUTH ANN @ [place], REPORTS THAT SHE HAS CALLED INSURANCE AND THEY REPORT IT IS STILL PENDING. THEY HAVE BED AVAIL SOON PRECERT OBTAINED. Initialized on 09/15/17 12:19 - END OF NOTE Assessment/Plan (1) Cellulitis Current Visit: Yes Status: Acute Qualifiers: Site of cellulitis of extremity: lower extremity Laterality: unspecified laterality Assessment & Plan: bilateral failed clindamycin outpatient per patient and staff they seem more red and warm today also with her systemic symtoms with the lack of appetite, weakness and nausea will start vancomycin and add ceftriaxone for gram neg and better staff coverage the culture of the blister is negative but the heat and pain is more superior to this Code(s): L03.90 - CELLULITIS, UNSPECIFIED (2) DM w/o complication type II Current Visit: Yes Status: Chronic Code(s): E11.9 - TYPE 2 DIABETES MELLITUS WITHOUT COMPLICATIONS (3) Essential hypertension Current Visit: Yes Status: Chronic Code(s): I10 - ESSENTIAL (PRIMARY) HYPERTENSION (4) History of thrombocytopenia Current Visit: Yes Status: Chronic Code(s): Z86.2 - PRSNL HISTORY OF DIS OF THE BLD/BLD-FORM ORG/IMMUN MECHNSM (5) Need for assistance due to unsteady gait Current Visit: Yes Status: Chronic Code(s): R26.89 - OTHER ABNORMALITIES OF GAIT AND MOBILITY (6) Hyperparathyroidism Current Visit: Yes Status: Acute Code(s): E21.3 - HYPERPARATHYROIDISM, UNSPECIFIED (7) Myxedema Current Visit: Yes Status: Acute Code(s): E03.9 - HYPOTHYROIDISM, UNSPECIFIED (8) Severe hypothyroidism Current Visit: Yes Status: Acute Code(s): E03.8 - OTHER SPECIFIED HYPOTHYROIDISM (9) Stasis dermatitis of both legs Current Visit: Yes Status: Acute Code(s): I87.2 - VENOUS INSUFFICIENCY ( CHRONIC) (PERIPHERAL) (10) Hypercalcemia Current Visit: Yes Status: Acute Code(s): E83.52 - HYPERCALCEMIA
[2017-09-16] MEDS: ROCEPHIN 1 Gm-D5w 50 ml Bag** 1 G/50 ML IVPB IV SCH (09:54)
[2017-09-16] MEDS: VANCOCIN 1 GM VIAL*** 2 GM in Sodium Chloride 0.9% 500 ML 500 ML IV SCH ×2 (10:54→21:51)
[2017-09-16] MEDS: BETAMETHASONE DIPROPIONATE TOP SCH ×2 (11:16→21:53)
[2017-09-16] MEDS: ZOCOR 20MG PO SCH (21:51)
[2017-09-16] MEDS: Zanaflex 4 MG PO SCH (21:51)
[2017-09-17] MEDS: SYNTHROID 75 MCG PO SCH (05:56)
[2017-09-17] MEDS: SYNTHROID 150 MCG PO SCH (05:56)
[2017-09-17] MEDS: Sodium Chloride 0.9% 10 ML FLUSH Syringe IJ SCH ×3 (05:57→22:30)
[2017-09-17 06:06] LABS: BASOPHIL % 0.2 % (0.0-0.4); Basophil (Absolute #) 0.01 (0-0.4); Eosinophil % 1.5 % (0.00-5.0); Eosinophil (Absolute #) 0.09 (0-0.5); Granulocyte Absolute (ANC) 5.47 (1.4-6.9); Granulocytes % 88.8 % (36.0-66.0); Hematocrit 42.1 % (35-47); Hemoglobin 13.8 gm/dl (12.0-16.0); Lymphocyte (Absolute #) 0.22 (1.0-4.6); Lymphocytes % 3.6 % (24.0-44.0); Mean Cell Volume 104.7 fl (78-100); Mean Corpuscular Hemoglobin 34.3 pg (26-32); Mean Corpuscular Hgb Concent. 32.8 g/dl (32-36); Mean Platelet Volume 11.3 fl (6-9.5); Monocyte (Absolute #) 0.36 (0.0-1.3); Monocytes % 5.9 % (0.0-12.0); Platelet Count 41 K/mm3 (150-450); Red Blood Count 4.02 M/mm3 (4.1-5.4); Red Cell Distribution Width 18.1 % (11.5-14.0); White Blood Count 6.2 K/mm3 (4.0-10.5)
[2017-09-17 06:55] LABS: Slide Review 1 YES
[2017-09-17] MEDS: ROCEPHIN 1 Gm-D5w 50 ml Bag** 1 G/50 ML IVPB IV SCH (08:57)
[2017-09-17] MEDS: BETAMETHASONE DIPROPIONATE TOP SCH ×2 (09:00→22:30)
[2017-09-17] MEDS: NEURONTIN 300 MG PO SCH ×4 (09:00→22:29)
[2017-09-17] MEDS: Colace 100 MG PO SCH (09:00)
[2017-09-17] MEDS: Paxil 20 MG PO SCH (09:00)
[2017-09-17] MEDS: PERCOCET TABLET 5/325MG PO PRN (09:02)
[2017-09-17] MEDS ORDERED: Lasix 40 MG/4 ML IV ONE (11:50)
--- NOTE | 2017-09-17 11:52 | PCM.NOTE ---
Date and Time: 09/17/17 1151 Subjective Assessment: she continues to have pain and burning in the feet and no appetite Objective Exam General Appearance: obese Neurologic Exam: oriented x 3, other (drowsy) Skin Exam: warm, other (bilateral lower extremities with the redness slight drainage from the left leg today with blistering proximal to ankles now warmth on the left improving on the right today bilateral feet with bloody clear drainage from the debrided bullae) Ears, Nose, Throat Exam: moist mucous membranes Neck Exam: non-tender, supple Respiratory Exam: normal breath sounds Cardiovascular Exam: regular rate/rhythm, normal heart sounds Gastrointestinal/Abdomen Exam: soft, normal bowel sounds, No tenderness OBJECTIVE DATA Vital Signs: Vital Signs - 24 hr Temp Pulse Resp BP Pulse Ox 09/17/17 11:28 98.5 F 76 18 133/66 97 09/17/17 08:11 76 20 92 L 09/17/17 07:15 98.0 F 71 20 124/78 93 L 09/17/17 03:45 97.8 F 73 16 129/78 90 L 09/17/17 00:00 98.7 F 68 19 129/71 93 L 09/16/17 20:00 98.1 F 78 20 171/88 93 L 09/16/17 19:10 80 18 93 L 09/16/17 17:56 77 18 93 L 09/16/17 16:00 98.0 F 62 18 136/77 94 L Oxygen-Last 24 hours O2 Percentage 2 Liters = 28% O2 Percentage 2 Liters = 28% O2 Percentage 2 Liters = 28% O2 Percentage 2 Liters = 28% O2 Percentage 2 Liters = 28% O2 Percentage 2 Liters = 28% Pain Assessment - Last Documented Pain Intensity 9 Pain Scale Used 0-10 Pain Scale Intake and Output: Intake & Output 09/14/17 09/15/17 09/16/17 09/17/17 11:59 11:59 11:59 11:59 Intake Total 760 403 181 1580 Output Total 9480 1100 Balance 442 -6898 -371 1266 Weight 165.5 kg 163.6 kg 162.8 kg Lab Results: Accuchecks Date 09/17/17 Date 09/16/17 Date 09/16/17 Time 07:30 Time 22:00 Time 16:30 Accucheck Value: 161 Accucheck Value: 165 Accucheck Value: 134 Lab Results-Last 24 Hours 09/17/17 Range/Units 05:20 WBC 6.2 (4.0-10.5) K/mm3 RBC 4.02 L (4.1-5.4) M/mm3 Hgb 13.8 (12.0-16.0) gm/dl Hct 42.1 (35-47) % MCV 104.7 H (78-100) fl MCH 34.3 H (26-32) pg MCHC 32.8 (32-36) g/dl RDW 18.1 H (11.5-14.0) % Plt Count 41 L (150-450) K/mm3 MPV 11.3 H (6-9.5) fl Gran % 88.8 H (36.0-66.0) % Eos # (Auto) 0.09 (0-0.5) Absolute Lymphs (auto) 0.22 L (1.0-4.6) Absolute Monos (auto) 0.36 (0.0-1.3) Lymphocytes % 3.6 L (24.0-44.0) % Monocytes % 5.9 (0.0-12.0) % Eosinophils % 1.5 (0.00-5.0) % Basophils % 0.2 (0.0-0.4) % Absolute Granulocytes 5.47 (1.4-6.9) Basophils # 0.01 (0-0.4) Slides for Path Review YES Assessment/Plan (1) Cellulitis Current Visit: Yes Status: Acute Qualifiers: Site of cellulitis of extremity: lower extremity Laterality: unspecified laterality Assessment & Plan: continue the vancomycin and ceftriaxone for the failed therapy. the warmth is improved today on the right but not the left leg. will continue the betamethasone cream to the legs only not to the feet at site of open wounds for the chronic changes with the drainage and increased swellign today will give 1 time dose of lasix check am labs Code(s): L03.90 - CELLULITIS, UNSPECIFIED (2) DM w/o complication type II Current Visit: Yes Status: Chronic Code(s): E11.9 - TYPE 2 DIABETES MELLITUS WITHOUT COMPLICATIONS (3) Essential hypertension Current Visit: Yes Status: Chronic Code(s): I10 - ESSENTIAL (PRIMARY) HYPERTENSION (4) History of thrombocytopenia Current Visit: Yes Status: Chronic Code(s): Z86.2 - PRSNL HISTORY OF DIS OF THE BLD/BLD-FORM ORG/IMMUN MECHNSM (5) Need for assistance due to unsteady gait Current Visit: Yes Status: Chronic Code(s): R26.89 - OTHER ABNORMALITIES OF GAIT AND MOBILITY (6) Hyperparathyroidism Current Visit: Yes Status: Acute Code(s): E21.3 - HYPERPARATHYROIDISM, UNSPECIFIED (7) Myxedema Current Visit: Yes Status: Acute Code(s): E03.9 - HYPOTHYROIDISM, UNSPECIFIED (8) Severe hypothyroidism Current Visit: Yes Status: Acute Code(s): E03.8 - OTHER SPECIFIED HYPOTHYROIDISM (9) Stasis dermatitis of both legs Current Visit: Yes Status: Acute Code(s): I87.2 - VENOUS INSUFFICIENCY ( CHRONIC) (PERIPHERAL) (10) Hypercalcemia Current Visit: Yes Status: Acute Code(s): E83.52 - HYPERCALCEMIA
[2017-09-17] MEDS: VANCOCIN 1 GM VIAL*** 2 GM in Sodium Chloride 0.9% 500 ML 500 ML IV SCH ×2 (11:56→22:28)
[2017-09-17 13:19] LABS: Appearance CLOUDY (CLEAR); Bilirubin NEGATIVE (NEGATIVE); Blood 250 Ery/ul (0-5); Glucose NEGATIVE (NEGATIVE); Ketones NEGATIVE (NEGATIVE); Leukocyte Esterase TRACE (NEGATIVE); Nitrite NEGATIVE (NEGATIVE); Protein,Urine Dip TRACE (Negative); Urobilinogen NORMAL mg/dL (0-1)
[2017-09-17 14:28] LABS: Mucus SLIGHT /HPF (NEGATIVE)
[2017-09-17 14:29] LABS: Bacteria MODERATE /HPF (NEGATIVE); Epithelial Cells FEW /HPF (FEW); RBC 50-100 /HPF (0-2)
[2017-09-17] MEDS: Zanaflex 4 MG PO SCH (22:29)
[2017-09-17] MEDS: ZOCOR 20MG PO SCH (22:29)
[2017-09-18 05:53] LABS: BASOPHIL % 0.5 % (0.0-0.4); Basophil (Absolute #) 0.02 (0-0.4); Eosinophil % 3.2 % (0.00-5.0); Eosinophil (Absolute #) 0.12 (0-0.5); Granulocyte Absolute (ANC) 2.96 (1.4-6.9); Granulocytes % 78.8 % (36.0-66.0); Hematocrit 42.3 % (35-47); Hemoglobin 13.9 gm/dl (12.0-16.0); Lymphocyte (Absolute #) 0.38 (1.0-4.6); Lymphocytes % 10.1 % (24.0-44.0); Mean Cell Volume 104.2 fl (78-100); Mean Corpuscular Hemoglobin 34.2 pg (26-32); Mean Corpuscular Hgb Concent. 32.9 g/dl (32-36); Mean Platelet Volume 11.7 fl (6-9.5); Monocyte (Absolute #) 0.28 (0.0-1.3); Monocytes % 7.4 % (0.0-12.0); Platelet Count 38 K/mm3 (150-450); Red Blood Count 4.06 M/mm3 (4.1-5.4); Red Cell Distribution Width 17.7 % (11.5-14.0); White Blood Count 3.8 K/mm3 (4.0-10.5)
[2017-09-18] MEDS: SYNTHROID 150 MCG PO SCH (06:02)
[2017-09-18] MEDS: SYNTHROID 75 MCG PO SCH (06:02)
[2017-09-18] MEDS: Sodium Chloride 0.9% 10 ML FLUSH Syringe IJ SCH (06:03)
[2017-09-18 06:04] LABS: ALBUMIN 2.7 g/dL (3.5-5.0); ALKALINE PHOSPHATASE 110 U/L (38-126); ANION GAP 8.4 MEQ/L (5-15); BLOOD UREA NITROGEN 9 mg/dL (7-17); CHLORIDE 104 mmol/L (98-107); Calcium 10.8 mg/dL (8.4-10.2); Carbon Dioxide 31 mmol/L (22-30); Creatinine 1 0.85 mg/dL (0.52-1.04); Glucose 150 mg/dL (74-106); Potassium 3.6 mmol/L (3.5-5.1); SGOT/AST 29 U/L (14-36); SGPT/ALT 21 U/L (0-35); SODIUM 140 mmol/L (137-145); Total Protein 5.9 g/dL (6.3-8.2)
--- NOTE | 2017-09-18 08:59 | PCM.NOTE ---
Date and Time: 09/18/17 0853 Subjective Assessment: She reports the tops of her feet continue to hurt. Her appetite is poor. Her feet continue to hurt when she stands. She had worsening redness of her legs and was started on antibiotics overnight. - Review of Systems Constitutional: No Symptoms Eyes: No Symptoms Ears, Nose, & Throat: No Symptoms Respiratory: No Symptoms Cardiac: No Symptoms Abdominal/Gastrointestinal: No Symptoms Genitourinary Symptoms: No Symptoms Musculoskeletal: Other (foot pain) Skin: Cellulitis Objective Exam General Appearance: no apparent distress, alert, obese Neurologic Exam: alert, cooperative, normal mood/affect Skin Exam: other (lower extremities with erythema and swelling from ankle to knee; top of feet with debrided blisters without any surrounding erythema) Respiratory Exam: normal breath sounds, lungs clear, No crackles/rales, No rhonchi, No wheezing Cardiovascular Exam: regular rate/rhythm, normal heart sounds, No murmur, No friction rub, No gallop Gastrointestinal/Abdomen Exam: soft, normal bowel sounds, No tenderness, No distention, No mass OBJECTIVE DATA Vital Signs: Vital Signs - 24 hr Temp Pulse Resp BP Pulse Ox 09/18/17 07:34 98.2 F 73 18 146/85 95 09/18/17 07:20 92 L 09/18/17 04:00 98.2 F 69 17 118/73 92 L 09/18/17 00:00 97.9 F 63 16 145/81 94 L 09/17/17 20:00 98.0 F 68 17 162/86 96 09/17/17 15:58 98.1 F 62 18 127/77 99 09/17/17 11:28 98.5 F 76 18 133/66 97 Oxygen-Last 24 hours O2 Percentage 2 Liters = 28% O2 Percentage 2 Liters = 28% O2 Percentage 2 Liters = 28% O2 Percentage 2 Liters = 28% O2 Percentage 2 Liters = 28% O2 Percentage 2 Liters = 28% Pain Assessment - Last Documented Pain Intensity 0 Pain Scale Used [facility] Intake and Output: Intake & Output 09/16/17 09/17/17 09/18/17 09/19/17 06:59 06:59 06:59 06:59 Intake Total 840 1266 790 Output Total 2100 Balance -1260 1266 790 Weight 163.6 kg 162.8 kg 163.7 kg Lab Results: Accuchecks Date 09/18/17 Date 09/17/17 Date 09/17/17 Time 22:00 Time 16:30 Time 11:30 Accucheck Value: 143 Accucheck Value: 153 Accucheck Value: 121 Accucheck Value: 141 Lab Results-Last 24 Hours 09/17/17 09/18/17 09/18/17 Range/Units 13:15 05:20 05:20 WBC 3.8 L (4.0-10.5) K/mm3 RBC 4.06 L (4.1-5.4) M/mm3 Hgb 13.9 (12.0-16.0) gm/dl Hct 42.3 (35-47) % MCV 104.2 H (78-100) fl MCH 34.2 H (26-32) pg MCHC 32.9 (32-36) g/dl RDW 17.7 H (11.5-14.0) % Plt Count 38 L (150-450) K/mm3 MPV 11.7 H (6-9.5) fl Gran % 78.8 H (36.0-66.0) % Eos # (Auto) 0.12 (0-0.5) Absolute Lymphs (auto) 0.38 L (1.0-4.6) Absolute Monos (auto) 0.28 (0.0-1.3) Lymphocytes % 10.1 L (24.0-44.0) % Monocytes % 7.4 (0.0-12.0) % Eosinophils % 3.2 (0.00-5.0) % Basophils % 0.5 (0.0-0.4) % Absolute Granulocytes 2.96 (1.4-6.9) Basophils # 0.02 (0-0.4) Sodium 140 (137-145) mmol/L Potassium 3.6 (3.5-5.1) mmol/L Chloride 104 (98-107) mmol/L Carbon Dioxide 31 H (22-30) mmol/L Anion Gap 8.4 (5-15) MEQ/L BUN 9 (7-17) mg/dL Creatinine 0.85 (0.52-1.04) mg/dL Estimated GFR > 60.0 ML/MIN Glucose 150 H (74-106) mg/dL Calcium 10.8 H (8.4-10.2) mg/dL Total Bilirubin 0.70 (0.2-1.3) mg/dL AST 29 (14-36) U/L ALT 21 (0-35) U/L Alkaline Phosphatase 110 (38-126) U/L Serum Total Protein 5.9 L (6.3-8.2) g/dL Albumin 2.7 L (3.5-5.0) g/dL Vitamin B12 (239-931) pg/mL Ur Collection Type CCMS Urine Color YELLOW (YELLOW) Urine Appearance CLOUDY (CLEAR) Urine pH 6.0 (5-6) Ur Specific [place] 1.020 (1.005-1.025) Urine Protein TRACE (Negative) Urine Ketones NEGATIVE (NEGATIVE) Urine Blood 250 (0-5) Roland/ul Urine Nitrite NEGATIVE (NEGATIVE) Urine Bilirubin NEGATIVE (NEGATIVE) Urine Urobilinogen NORMAL (0-1) mg/dL Ur Leukocyte Esterase TRACE (NEGATIVE) Urine Microscopic RBC 50-100 (0-2) /HPF Urine Microscopic WBC 2-5 (0-5) /HPF Ur Epithelial Cells FEW (FEW) /HPF Urine Bacteria MODERATE (NEGATIVE) /HPF Urine Mucus SLIGHT (NEGATIVE) /HPF Urine Glucose NEGATIVE (NEGATIVE) mg/dL Slides for Path Review YES Specimen Received 1315 09/17/17 09/18/17 Range/Units 05:20 WBC (4.0-10.5) K/mm3 RBC (4.1-5.4) M/mm3 Hgb (12.0-16.0) gm/dl Hct (35-47) % MCV (78-100) fl MCH (26-32) pg MCHC (32-36) g/dl RDW (11.5-14.0) % Plt Count (150-450) K/mm3 MPV (6-9.5) fl Gran % (36.0-66.0) % Eos # (Auto) (0-0.5) Absolute Lymphs (auto) (1.0-4.6) Absolute Monos (auto) (0.0-1.3) Lymphocytes % (24.0-44.0) % Monocytes % (0.0-12.0) % Eosinophils % (0.00-5.0) % Basophils % (0.0-0.4) % Absolute Granulocytes (1.4-6.9) Basophils # (0-0.4) Sodium (137-145) mmol/L Potassium (3.5-5.1) mmol/L Chloride (98-107) mmol/L Carbon Dioxide (22-30) mmol/L Anion Gap (5-15) MEQ/L BUN (7-17) mg/dL Creatinine (0.52-1.04) mg/dL Estimated GFR ML/MIN Glucose (74-106) mg/dL Calcium (8.4-10.2) mg/dL Total Bilirubin (0.2-1.3) mg/dL AST (14-36) U/L ALT (0-35) U/L Alkaline Phosphatase (38-126) U/L Serum Total Protein (6.3-8.2) g/dL Albumin (3.5-5.0) g/dL Vitamin B12 485 (239-931) pg/mL Ur Collection Type Urine Color (YELLOW) Urine Appearance (CLEAR) Urine pH (5-6) Ur Specific [place] (1.005-1.025) Urine Protein (Negative) Urine Ketones (NEGATIVE) Urine Blood (0-5) Roland/ul Urine Nitrite (NEGATIVE) Urine Bilirubin (NEGATIVE) Urine Urobilinogen (0-1) mg/dL Ur Leukocyte Esterase (NEGATIVE) Urine Microscopic RBC (0-2) /HPF Urine Microscopic WBC (0-5) /HPF Ur Epithelial Cells (FEW) /HPF Urine Bacteria (NEGATIVE) /HPF Urine Mucus (NEGATIVE) /HPF Urine Glucose (NEGATIVE) mg/dL Slides for Path Review Specimen Received Radiology Exams: Radiology Procedures Category Date Time Status PICC LINE PLACEMENT Routine Exams 09/18/17 Ordered Assessment/Plan (1) Cellulitis Current Visit: Yes Status: Acute Assessment & Plan: Continue vancomycin and ceftriaxone. Continue PT care. Code(s): L03.90 - CELLULITIS, UNSPECIFIED (2) Severe hypothyroidism Current Visit: Yes Status: Acute Assessment & Plan: Continue levothyroxine. Code(s): E03.8 - OTHER SPECIFIED HYPOTHYROIDISM (3) Skin bulla Current Visit: Yes Status: Acute Code(s): R23.8 - OTHER SKIN CHANGES (4) Unsteady gait Current Visit: Yes Status: Acute Assessment & Plan: Continue PT. Code(s): R26.81 - UNSTEADINESS ON FEET (5) DM w/o complication type II Current Visit: Yes Status: Chronic Assessment & Plan: Novolog low dose sliding scale and hold oral hypoglycemics. Code(s): E11.9 - TYPE 2 DIABETES MELLITUS WITHOUT COMPLICATIONS (6) Hyperparathyroidism Current Visit: Yes Status: Acute Assessment & Plan: She follows with Endo as outpatient. Code(s): E21.3 - HYPERPARATHYROIDISM, UNSPECIFIED (7) Chronic pain of both knees Current Visit: Yes Status: Acute Assessment & Plan: Continue chronic pain medication. Code(s): M25.561 - PAIN IN RIGHT KNEE; M25.562 - PAIN IN LEFT KNEE; G89.29 - OTHER CHRONIC PAIN (8) Essential hypertension Current Visit: Yes Status: Chronic Assessment & Plan: Well controlled. Code(s): I10 - ESSENTIAL (PRIMARY) HYPERTENSION (9) Myxedema Current Visit: Yes Status: Acute Code(s): E03.9 - HYPOTHYROIDISM, UNSPECIFIED (10) History of thrombocytopenia Current Visit: Yes Status: Chronic Assessment & Plan: Stable. Code(s): Z86.2 - PRSNL HIST[facility]
[2017-09-18] MEDS ORDERED: TROUGH DRUG LEVELS IJ ONE (09:30)
[2017-09-18] MEDS ORDERED: BUMEX 1 MG PO SCH (10:00)
[2017-09-18 10:13] LABS: INR 1.4 (0.8-3.0)
[2017-09-18] MEDS ORDERED: Heparin 1000 units/ml (10 Ml vial) 1,000 U in Sodium Chloride 0.9% 500 ML 500 ML IV SCH (10:30)
[2017-09-18] MEDS: Colace 100 MG PO SCH (11:56)
[2017-09-18] MEDS: NEURONTIN 300 MG PO SCH ×2 (11:56→14:35)
[2017-09-18] MEDS: Paxil 20 MG PO SCH (11:57)
[2017-09-18] MEDS: ROCEPHIN 1 Gm-D5w 50 ml Bag** 1 G/50 ML IVPB IV SCH (11:57)
[2017-09-18] MEDS: BETAMETHASONE DIPROPIONATE TOP SCH (12:06)
[2017-09-18 12:07] VITALS: BP 123/74; PULSE 66; O2SAT 94
--- NOTE | 2017-09-18 12:20 | XRAY ---
Indication: Long-term IV access and therapy for bilateral lower extremity infection. Informed consent obtained. Patient was placed on the fluoroscopic table in a supine position. Initial sonographic imaging of the right upper extremity was performed for localization of patent veins. The right upper extremity was then prepped and draped in sterile fashion. Tourniquet applied. 1% lidocaine plain used for local anesthesia. Using ultrasound guidance and a micropuncture needle, a basilic vein above the elbow was successfully percutaneously cannulized. A floppy tip 0.018 guidewire inserted. Tourniquet released. Needle was exchanged for a 5 Ecuadorean dilator peel-away sheath catheter. Ultimately a 5 Ecuadorean double-lumen PICC line was inserted over a longer 0.018 guidewire with the tip positioned in the distal SVC using fluoroscopic guidance. Guidewire removed. Both ports flushed with heparinized saline. Catheter was secured. Postoperative instructions and orders given. Patient discharged in good condition. Impression: Technically successful right upper extremity PICC line placement using ultrasound and fluoroscopic guidance. No immediate complications. Approximately 2 cc blood loss. Approximately 0.3 minute of fluoroscopy used. Catheter length is 45.5 cm.
--- NOTE | 2017-09-18 12:22 | XRAY ---
Indication: Ultrasound guidance for PICC line placement. Initial sonographic imaging of the right upper extremity was performed for localization of patent veins. A patent basilic vein identified above the elbow. Ultrasound guidance was then used for PICC line insertion. Full PICC line insertion is reported separately.
[2017-09-18] MEDS ORDERED: Sodium Chloride 0.9% 10 ML FLUSH Syringe PICC PRN (14:25)
--- NOTE | 2017-09-18 15:21 | PCM.DCORD ---
- Discharge Discharge Date: 09/18/17 Disposition: Skilled Care @ [facility] Condition: Stable Prescriptions: New Betamethasone Dipropionate 1 gm TOP BID oint...g. Bumetanide 1 mg [Bumex 1 mg] 2 mg PO DAILY tablet Heparin Flush 500 units/5 ml [Heparin Lock Flush 100 Units/ml 5ml Syringe ] 500 units PICC PRN PRN disp.syrin PRN Reason: Iv Port Flush Ceftriaxone 1 GM/50 ML PREMIX* [ROCEPHIN 1 Gm-D5w 50 ml Bag] 1 g IV Q24H10 4 Days ivpb NaCl 0.9% 10 ML FLUSH [Sodium Chloride 0.9% 10 ML FLUSH Syringe] 10 ml PICC PRN PRN disp.syrin PRN Reason: FLUSH Levothyroxine Sodium 150 Mcg [Synthroid 150 Mcg] 300 mcg PO DAILY@0600 tablet Acetaminophen 325 mg [Tylenol 325 mg] 650 mg PO Q4H/PRN PRN tablet PRN Reason: TEMP >101. Vancomycin HCl in Dextrose 5 % [Vancomycin 1.25 Gram/250Ml-D5w] 1.25 gm IV Q12H #9 plast..bag Continue Docusate Sodium 100 mg [Colace 100 MG] 100 mg PO DAILY Tizanidine HCl 4 mg [Zanaflex 4 MG] 4 mg PO HS Paroxetine HCl 20 mg [Paxil 20 MG] 20 mg PO DAILY Metformin HCl [Metformin HCl ER] 500 mg PO BID Simvastatin 40 mg [Zocor 40 mg] 40 mg PO DAILY Levothyroxine Sodium 75 Mcg [Synthroid 75 Mcg] 75 mcg PO DAILY Gabapentin 600 mg PO QID Changed Oxycodone HCl/Acetaminophen [Percocet 7.5-325 mg Tablet] 1 each PO Q6HPRN PRN #28 tablet MDD 4 PRN Reason: Pain Discontinued Levothyroxine Sodium 88 Mcg [Synthroid 88 Mcg] 300 mcg PO DAILY Omeprazole 20 MG [Prilosec 20 mg] 20 mg PO DAILY Naproxen 500 mg [Naprosyn 500 MG] 500 mg PO [id number] PRN PRN Reason: Pain Potassium Chloride 10 meq PO DAILY Glipizide [Glipizide ER] 10 mg PO DAILY Bumetanide 1 mg [Bumex 1 mg] 2 mg PO DAILY Additional Instructions: Levothyroxine is a total of 375 mcg po QAM 1 hour before eating or drinking anything else. May take with a small sip of water. TSH in 3 weeks with diagnosis hypothyroidism. Dr. Calderon will see her at [place]. Please have a set of vitals and chart available for rounding on 09/21/17. Follow up with: SONYA CALDERON [Primary Care Provider] - 1 Week Forms: Ambulance Transport Record, Transfer Record [employer]
[2017-09-18] MEDS ORDERED: VANCOCIN 1 GM VIAL*** 1.25 GM in Sodium Chloride 0.9% 250 ML 250 ML IV SCH (22:00)
[2017-09-19 07:08] LABS: Slide Review 1 YES
== END 2017-09-18 17:10 | DRG 644 ==
LOC: MED SURG 09:28 → MERGE 14:15 → MED SURG 14:15 → OBSVTOIN 09-16 09:28
PROVIDERS: ADMIT Internal Medicine; ATTEND Internal Medicine
DX: E03.8 Other specified hypothyroidism (principal); L03.90 Cellulitis, unspecified; R23.8 Other skin changes; R26.81 Unsteadiness on feet; E11.9 Type 2 diabetes mellitus without complications; E21.3 Hyperparathyroidism, unspecified; M25.561 Pain in right knee; I10 Essential (primary) hypertension; E03.9 Hypothyroidism, unspecified; Z86.2 Personal history of diseases of the blood and blood-forming organs and certain disorders involving the immune mechanism; G89.29 Other chronic pain; I87.2 Venous insufficiency (chronic) (peripheral); E83.52 Hypercalcemia
CPT/HCPCS: 36415; 36569; 76942; 77001; 80048; 80053; 80202; 81000; 82607; 82784; 83036; 83516; 83880; 84443; 85025; 85610; 87070; 93005; 94760; A6457; C1769; G0378; J0696; J1642; J1644; J1940; J3370; A9270-GY

== ENCOUNTER 2017-09-23 12:37 | Observation (INO) | payer OTHER ==
--- NOTE | 2017-09-23 12:57 | ERPHSYRPT ---
- History of Present Illness Time Seen by Provider: 09/23/17 12:51 Source: EMS Exam Limitations: no limitations Physician History: 62-year-old white female sent from the group home with complaints that she is acting inappropriately apparently pushing things into her vaginal area will not stay in bed symptoms since this morning Past medical history includes CVA, myocardial infarction, high blood pressure, hypothyroidism, depression, lumbago Past surgical history includes cholecystectomy, joint replacement, hysterectomy , , right knee replacement, gastric bypass Timing/Duration: today Severity: moderate Modifying Factors: Improves With: nothing Associated Symptoms: No nausea, No vomiting, No abdominal pain, No shortness of breath, No heartburn, No diaphoresis, No cough, No chills, No chest pain, No fever, No headaches, No loss of appetite, No malaise, No rash, No syncope, No seizure Allergies/Adverse Reactions: atropine sulfate [From Lomotil] Allergy (Verified 09/23/17 12:53) skin rash/hives diphenoxylate HCl [From Lomotil] Allergy (Verified 09/23/17 12:53) skin rash/hives fentanyl [From Duragesic] Allergy (Verified 09/23/17 12:53) skin rash/hives penicillin G Allergy (Verified 09/23/17 12:53) skin rash/hive Home Medications: Docusate Sodium 100 mg [Colace 100 MG] 100 mg PO DAILY 09/12/17 [History] Gabapentin 600 mg PO QID 09/12/17 [History] Levothyroxine Sodium 75 Mcg [Synthroid 75 Mcg] 75 mcg PO DAILY 09/12/17 [ History] Metformin HCl [Metformin HCl ER] 500 mg PO BID 09/12/17 [History] Paroxetine HCl 20 mg [Paxil 20 MG] 20 mg PO DAILY 09/12/17 [History] Simvastatin 40 mg [Zocor 40 mg] 40 mg PO DAILY 09/12/17 [History] Tizanidine HCl 4 mg [Zanaflex 4 MG] 4 mg PO HS 09/12/17 [History] Hx Tetanus, Diphtheria Vaccination/Date Given: (unknown) Hx Influenza Vaccination/Date Given: No Hx Pneumococcal Vaccination/Date Given: No - Review of Systems Constitutional: No Fever, No Chills Eyes: No Symptoms Ears, Nose, & Throat: No Symptoms Respiratory: No Cough, No Dyspnea Cardiac: No Chest Pain, No Edema, No Syncope Abdominal/Gastrointestinal: No Abdominal Pain, No Nausea, No Vomiting, No Diarrhea Genitourinary Symptoms: Other (patient apparently pushing objects in her vaginal area at group home) Musculoskeletal: No Back Pain, No Neck Pain Skin: Other (patient with chronic ulcers on her feet) Neurological: No Dizziness, No Focal Weakness, No Sensory Changes Psychological: Other (Patient will not stay in bed at home, pushing objects in her vaginal area at home) Endocrine: No Symptoms All Other Systems: Reviewed and Negative - Past Medical History Pertinent Past Medical History: Yes Neurological History: Stroke ENT History: Cataracts Cardiac History: Myocardial Infarction (NH), Hypertension Respiratory History: CHF Endocrine Medical History: Diabetes Type II, Hypothyroidism Musculoskeletal History: Osteoarthritis, Fibromyalgia GI Medical History: Gallbladder Disease History: No Pertinent History Psycho-Social History: Depression Female Reproductive Disorders: No Pertinent History Other Medical History: lumbago - Past Surgical History Past Surgical History: Yes Cardiac: No Pertinent History Respiratory: No Pertinent History Gastrointestinal: Cholecystectomy Genitourinary: No Pertinent History Musculoskeletal: Joint Replacement Female Surgical History: Hysterectomy, Section Other Surgical History: right knee replacement, gastric bypass, - Social History Smoking Status: Current every day smoker How long have you smoked: 50 Exposure to second hand smoke: Yes Drug Use: none Patient Lives Alone: No - Nursing Vital Signs Nursing Vital Signs: Initial Vital Signs Temperature 98.0 F 09/23/17 12:42 Pulse Rate 87 09/23/17 12:42 Respiratory Rate 16 09/23/17 12:42 Blood Pressure 131/60 09/23/17 12:42 O2 Sat by Pulse Oximetry 93 L 09/23/17 12:42 Pain Scale Pain Intensity [] 0 Pain Intensity 4 - Physical Exam General Appearance: other (morbidly obese white female. Says "chely Pulido" as being wheeled in in stretcher, will not answer questions when I walk into room but later answering questions) Eye Exam: PERRL/EOMI, eyes nml inspection Ears, Nose, Throat Exam: normal ENT inspection, TMs normal, pharynx normal, moist mucous membranes Neck Exam: normal inspection, non-tender, supple, full range of motion Respiratory Exam: normal breath sounds, lungs clear, No respiratory distress Cardiovascular Exam: regular rate/rhythm, normal heart sounds, normal peripheral pulses Gastrointestinal/Abdomen Exam: soft, normal bowel sounds, No tenderness, No mass Pelvic Exam: other (no obvious traumaon external exam) Back Exam: normal inspection, normal range of motion, No CVA tenderness, No vertebral tenderness Extremity Exam: other (bilateral lower extremities erythematous chronic, both feet with dressings in place) Neurologic Exam: alert, video clerk II-XII nml as tested, other (Alert oriented to self , cranial nerves II throughXII intact, answers questions appropriately at times) Skin Exam: other (Bilateral lower extremities erythematous(chronic) area not hot, dressings in place on bilateral feet) SpO2 Interpretation: normal (Was her send him for him) - Course Nursing assessment & vital signs reviewed: Yes EKG Interpreted by Me: RATE (89 bpm), NORMAL AXIS, Other (EKG: Large amount of artifact in anterior leads, sinus rhythm, normal axis, no acute ST or T wave changes noted.) - CT Exams Head CT Interpretation: Tele-radiologist Report (head CT: No acute intracranial hemorrhage or edema) Ordered Tests: Active Orders 24 hr Category Date Time Status Accucheck STAT Care 09/23/17 12:50 Active EKG-ER Only STAT Care 09/23/17 12:50 Active IV Insertion STAT Care 09/23/17 12:50 Active CHEST 1 VIEW (PORTABLE) Stat Exams 09/23/17 16:15 Ordered HEAD WITHOUT CONTRAST [CT] Stat Exams 09/23/17 14:37 Taken ACETAMINOPHEN Stat Lab 09/23/17 13:36 Completed CBC W DIFF Stat Lab 09/23/17 13:36 Completed CMP Stat Lab 09/23/17 13:36 Completed CULTURE,URINE Stat Lab 09/23/17 13:25 Received ETHYL ALCOHOL Stat Lab 09/23/17 13:36 Completed Manual Differential NC Stat Lab 09/23/17 13:36 Completed SALICYLATE Stat Lab 09/23/17 13:36 Completed UA W/ MICROSCOPIC Stat Lab 09/23/17 13:25 Completed Urine Triage Profile Stat Lab 09/23/17 13:25 Completed Medication Summary Generic Name Dose Route Start Last Admin Trade Name Freq PRN Reason Stop Dose Admin Sodium Chloride 1,000 mls @ 100 mls/hr 09/23/17 13:00 09/23/17 13:11 Sodium Chloride 0.9% 1000 Ml IV 10/23/17 12:59 100 mls/hr .Q10H ALEX Administration Discontinued Medications Generic Name Dose Route Start Last Admin Trade Name Russell PRN Reason Stop Dose Admin Potassium Bicarbonate 50 meq 09/23/17 15:25 09/23/17 15:30 K-Lyte 25 Meq PO 09/23/17 15:26 50 meq STAT ONE Administration Potassium Bicarbonate Confirm 09/23/17 15:29 K-Lyte 25 Meq Administered 09/23/17 15:30 Dose 50 meq .ROUTE .STK-MED ONE Lab/Rad Data: Laboratory Result Diagrams 09/23/17 13:36 09/23/17 13:36 Laboratory Results 09/23/17 09/23/17 09/23/17 Range/Units 13:36 13:36 13:25 WBC 5.2 (4.0-10.5) K/mm3 RBC 4.08 L (4.1-5.4) M/mm3 Hgb 14.2 (12.0-16.0) gm/dl Hct 42.0 (35-47) % MCV 102.9 H (78-100) fl MCH 34.8 H (26-32) pg MCHC 33.8 (32-36) g/dl RDW 18.4 H (11.5-14.0) % Plt Count 31 L (150-450) K/mm3 MPV 12.3 H (6-9.5) fl Gran % 67.5 H (36.0-66.0) % Eos # (Auto) 0.06 (0-0.5) Absolute Lymphs (auto) 0.94 L (1.0-4.6) Absolute Monos (auto) 0.68 (0.0-1.3) Lymphocytes % 18.0 L (24.0-44.0) % Monocytes % 13.0 H (0.0-12.0) % Eosinophils % 1.1 (0.00-5.0) % Basophils % 0.4 (0.0-0.4) % Absolute Granulocytes 3.53 (1.4-6.9) Segmented Neutrophils 84 H (36.0-66.0) % Lymphocytes (Manual) 13 L (24-44) % Monocytes (Manual) 3 (0.0-12.0) % Basophils # 0.02 (0-0.4) Platelet Estimate DECREASED (NORMAL) RBC Morphology ABNORMAL Poikilocytosis 1+ Anisocytosis 1+ Sodium 145 (137-145) mmol/L Potassium 3.0 L (3.5-5.1) mmol/L Chloride 101 (98-107) mmol/L Carbon Dioxide 36 H (22-30) mmol/L Anion Gap 10.6 (5-15) MEQ/L BUN 19 H (7-17) mg/dL Creatinine 0.69 (0.52-1.04) mg/dL Estimated GFR > 60.0 ML/MIN Glucose 149 H (74-106) mg/dL Calcium 11.4 H (8.4-10.2) mg/dL Total Bilirubin 1.90 H (0.2-1.3) mg/dL AST 40 H (14-36) U/L ALT 31 (0-35) U/L Alkaline Phosphatase 132 H (38-126) U/L Serum Total Protein 6.5 (6.3-8.2) g/dL Albumin 3.2 L (3.5-5.0) g/dL Ur Collection Type Urine Color (YELLOW) Urine Appearance (CLEAR) Urine pH (5-6) Ur Specific [place] (1.005-1.025) Urine Protein (Negative) Urine Ketones (NEGATIVE) Urine Blood (0-5) Roland/ul Urine Nitrite (NEGATIVE) Urine Bilirubin (NEGATIVE) Urine Urobilinogen (0-1) mg/dL Ur Leukocyte Esterase (NEGATIVE) Urine Microscopic RBC (0-2) /HPF Urine Microscopic WBC (0-5) /HPF Ur Epithelial Cells (FEW) /HPF Urine Bacteria (NEGATIVE) /HPF Urine Culture Reflexed (NO) Urine Glucose (NEGATIVE) mg/dL Salicylates 1.1 L (2-20) mg/dL Urine Opiates Level NEGATIVE (NEGATIVE) Ur Methadone NEGATIVE (NEGATIVE) Acetaminophen < 10 L (10-30) ug/ml Urine Barbiturates NEGATIVE (NEGATIVE) Ur Phencyclidine (PCP) NEGATIVE (NEGATIVE) Urine Amphetamine NEGATIVE (NEGATIVE) U Benzodiazepine Level NEGATIVE (NEGATIVE) Urine Cocaine NEGATIVE (NEGATIVE) Urine Marijuana (THC) NEGATIVE (NEGATIVE) Ethyl Alcohol < 10 (0-10) mg/dL Specimen Received 09/23/17 Range/Units 13:25 WBC (4.0-10.5) K/mm3 RBC (4.1-5.4) M/mm3 Hgb (12.0-16.0) gm/dl Hct (35-47) % MCV (78-100) fl MCH (26-32) pg MCHC (32-36) g/dl RDW (11.5-14.0) % Plt Count (150-450) K/mm3 MPV (6-9.5) fl Gran % (36.0-66.0) % Eos # (Auto) (0-0.5) Absolute Lymphs (auto) (1.0-4.6) Absolute Monos (auto) (0.0-1.3) Lymphocytes % (24.0-44.0) % Monocytes % (0.0-12.0) % Eosinophils % (0.00-5.0) % Basophils % (0.0-0.4) % Absolute Granulocytes (1.4-6.9) Segmented Neutrophils (36.0-66.0) % Lymphocytes (Manual) (24-44) % Monocytes (Manual) (0.0-12.0) % Basophils # (0-0.4) Platelet Estimate (NORMAL) RBC Morphology Poikilocytosis Anisocytosis Sodium (137-145) mmol/L Potassium (3.5-5.1) mmol/L Chloride (98-107) mmol/L Carbon Dioxide (22-30) mmol/L Anion Gap (5-15) MEQ/L BUN (7-17) mg/dL Creatinine (0.52-1.04) mg/dL Estimated GFR ML/MIN Glucose (74-106) mg/dL Calcium (8.4-10.2) mg/dL Total Bilirubin (0.2-1.3) mg/dL AST (14-36) U/L ALT (0-35) U/L Alkaline Phosphatase (38-126) U/L Serum Total Protein (6.3-8.2) g/dL Albumin (3.5-5.0) g/dL Ur Collection Type CATH Urine Color YELLOW (YELLOW) Urine Appearance HAZY (CLEAR) Urine pH 6.0 (5-6) Ur Specific [place] 1.020 (1.005-1.025) Urine Protein NEGATIVE (Negative) Urine Ketones SMALL (NEGATIVE) Urine Blood 250 (0-5) Roland/ul Urine Nitrite NEGATIVE (NEGATIVE) Urine Bilirubin NEGATIVE (NEGATIVE) Urine Urobilinogen NORMAL (0-1) mg/dL Ur Leukocyte Esterase NEGATIVE (NEGATIVE) Urine Microscopic RBC >100 (0-2) /HPF Urine Microscopic WBC 15-25 (0-5) /HPF Ur Epithelial Cells MODERATE (FEW) /HPF Urine Bacteria MODERATE (NEGATIVE) /HPF Urine Culture Reflexed YES (NO) Urine Glucose NEGATIVE (NEGATIVE) mg/dL Salicylates (2-20) mg/dL Urine Opiates Level (NEGATIVE) Ur Methadone (NEGATIVE) Acetaminophen (10-30) ug/ml Urine Barbiturates (NEGATIVE) Ur Phencyclidine (PCP) (NEGATIVE) Urine Amphetamine (NEGATIVE) U Benzodiazepine Level (NEGATIVE) Urine Cocaine (NEGATIVE) Urine Marijuana (THC) (NEGATIVE) Ethyl Alcohol (0-10) mg/dL Specimen Received 09-23-17 1330 - Progress Progress: improved Progress Note: 09/23/17 16:31 62-year-old white female with history of CVA, myocardial infarction, high blood pressure, hypothyroidism, depression, chronic back pain. She is sent from the group home patient apparently would refuse to stay in bed patient also noted to have a low potassium at the group home. On arrival patient actually said chely Doctor to me as she was willing by on the stretcher however when I entered the room she would not talk to me. I had been informed that the patient had of been trying to injure herself sticking things in her vaginal area. However on physical examination I could not see anything and when patient heard this she actually sat up and said I did did not do this and I wouldn't do anything like this. Patient seems to be able to speak with the nurses she does not talk to me. Patient was noted to be low on her potassium. And was given [address] on this patient no acute disease process noted chest x-ray no acute disease process noted. Patient's CBC is remarkable for a platelet count of [address] no acute bleeds or edema urinalysis remarkable for greater than 100 red cells per high-power field and 15-25 white cells per high-power field EKG sinus rhythm with a lot of artifact 89 beats per minute normal axis no acute ST or T wave changes noted. Patient's vitals are stable. I've discussed the patient's case with Dr. Wiseman who is desk monitor for Dr. Osullivan. Will place patient on observation. Diagnosis is mental status change. Hypokalemia. Will provide patient with IV normal saline with 20 mEq of potassium at 100 mL per hour. Monitor the patient. And do every 4 hours neuro checks. - Departure Time of Disposition: 16:35 Departure Disposition: Observation Clinical Impression: Hypokalemia Mental status change Qualifiers: Altered mental status type: unspecified Qualified Code(s): R41.82 - Altered mental status, unspecified Condition: Fair Critical Care Time: No Referrals: MEHNAZ POP [Primary Care Provider] -
[2017-09-23] MEDS ORDERED: Sodium Chloride 0.9% 1000 ML 1,000 ML IV SCH (13:00)
[2017-09-23] MEDS ORDERED: Sodium Chloride 0.9% 1000 ML 1,000 ML ONE (13:08)
[2017-09-23 13:45] LABS: BASOPHIL % 0.4 % (0.0-0.4); Basophil (Absolute #) 0.02 (0-0.4); Eosinophil % 1.1 % (0.00-5.0); Eosinophil (Absolute #) 0.06 (0-0.5); Granulocyte Absolute (ANC) 3.53 (1.4-6.9); Granulocytes % 67.5 % (36.0-66.0); Hemoglobin 14.2 gm/dl (12.0-16.0); Lymphocyte (Absolute #) 0.94 (1.0-4.6); Mean Cell Volume 102.9 fl (78-100); Mean Corpuscular Hemoglobin 34.8 pg (26-32); Mean Corpuscular Hgb Concent. 33.8 g/dl (32-36); Mean Platelet Volume 12.3 fl (6-9.5); Monocyte (Absolute #) 0.68 (0.0-1.3); Platelet Count 31 K/mm3 (150-450); Red Blood Count 4.08 M/mm3 (4.1-5.4); Red Cell Distribution Width 18.4 % (11.5-14.0); White Blood Count 5.2 K/mm3 (4.0-10.5)
[2017-09-23 13:58] LABS: ALBUMIN 3.2 g/dL (3.5-5.0); ALKALINE PHOSPHATASE 132 U/L (38-126); ANION GAP 10.6 MEQ/L (5-15); BLOOD UREA NITROGEN 19 mg/dL (7-17); CHLORIDE 101 mmol/L (98-107); Calcium 11.4 mg/dL (8.4-10.2); Carbon Dioxide 36 mmol/L (22-30); Creatinine 1 0.69 mg/dL (0.52-1.04); Glucose 149 mg/dL (74-106); SALICYLATE 1.1 mg/dL (2-20); SGOT/AST 40 U/L (14-36); SGPT/ALT 31 U/L (0-35); SODIUM 145 mmol/L (137-145); Total Protein 6.5 g/dL (6.3-8.2)
[2017-09-23 14:08] LABS: Amphetamine,Urine NEGATIVE (NEGATIVE); Barbiturate,Urine NEGATIVE (NEGATIVE); Benzodiazepine,Urine NEGATIVE (NEGATIVE); Cocaine,Urine NEGATIVE (NEGATIVE); Methadone,Urine NEGATIVE (NEGATIVE); Opiate,Urine NEGATIVE (NEGATIVE); PCP,Urine NEGATIVE (NEGATIVE); THC,Urine NEGATIVE (NEGATIVE)
[2017-09-23 14:17] LABS: ACETAMINOPHEN < 10 ug/ml (10-30); ETHYL ALCOHOL < 10 mg/dL (0-10)
[2017-09-23 14:32] LABS: Lymphocytes 13 % (24-44); Monocyte 3 % (0.0-12.0); Neutrophils 84 % (36.0-66.0); Total Cells Counted 100
[2017-09-23 14:34] LABS: Platelet Estimate DECREASED (NORMAL)
[2017-09-23 14:35] LABS: ANISOCYTOSIS 1+; Poikilocytosis 1+
[2017-09-23 14:53] LABS: Appearance HAZY (CLEAR); Bacteria MODERATE /HPF (NEGATIVE); Bilirubin NEGATIVE (NEGATIVE); Blood 250 Ery/ul (0-5); Epithelial Cells MODERATE /HPF (FEW); Glucose NEGATIVE (NEGATIVE); Ketones SMALL (NEGATIVE); Leukocyte Esterase NEGATIVE (NEGATIVE); Nitrite NEGATIVE (NEGATIVE); Protein,Urine Dip NEGATIVE (Negative); RBC >100 /HPF (0-2); Urobilinogen NORMAL mg/dL (0-1); WBC 15-25 /HPF (0-5)
[2017-09-23] MEDS ORDERED: K-LYTE 25 MEQ PO ONE (15:25)
[2017-09-23] MEDS ORDERED: K-LYTE 25 MEQ ONE (15:29)
[2017-09-23] MEDS ORDERED: NovoLOG Insulin SQ PRN (17:20)
[2017-09-23] MEDS: Sodium Chloride 0.9% W/ 20 mEq KCl/LITER 1,000 ML IV SCH (18:32)
--- NOTE | 2017-09-23 21:05 | XRAY ---
Indication: Mental status change. Comparison: May 26, 2017. Portable chest less inflated today with bibasilar linear opacities, probable subsegmental atelectasis. Infiltrates not completely excluded in the right clinical setting. Remaining heart and lungs unremarkable. New right arm PICC line.
[2017-09-23] MEDS ORDERED: PERCOCET TABLET 5/325MG PO PRN (21:06)
--- NOTE | 2017-09-23 21:06 | XRAY ---
Indication: Altered mental status. Multiple contiguous axial images obtained through the head without contrast. Comparison: None Bilateral earrings produces beam artifact limiting these levels. Also mild multilevel motion artifact. No gross acute intracranial hemorrhage, abnormal extra-axial fluid collection, or mass effect. Fourth ventricle is midline without hydrocephalus. Meneses-white matter differentiation preserved. Bony calvarium intact. Visualized paranasal sinuses and mastoid air cells are clear. Impression: 1. Limited exam due to beam and motion artifact. 2. No gross acute intracranial abnormalities. Comment: Preliminary interpretation was made by [facility]. No discrepancy. CTDI 60.11
[2017-09-23] MEDS ORDERED: Zanaflex 4 MG PO PRN (21:08)
[2017-09-23] MEDS: Glucophage XR 500 MG PO SCH (21:57)
[2017-09-23] MEDS: NEURONTIN 300 MG PO SCH (21:59)
[2017-09-24] MEDS: Sodium Chloride 0.9% W/ 20 mEq KCl/LITER 1,000 ML IV SCH (04:39)
[2017-09-24 05:46] LABS: Granulocyte Absolute (ANC) 3.12 (1.4-6.9); Hematocrit 38.7 % (35-47); Hemoglobin 13.1 gm/dl (12.0-16.0); Mean Cell Volume 102.9 fl (78-100); Mean Corpuscular Hemoglobin 34.8 pg (26-32); Mean Corpuscular Hgb Concent. 33.9 g/dl (32-36); Mean Platelet Volume 11.7 fl (6-9.5); Platelet Count 33 K/mm3 (150-450); Red Blood Count 3.76 M/mm3 (4.1-5.4); Red Cell Distribution Width 18.1 % (11.5-14.0)
[2017-09-24 06:03] LABS: ALBUMIN 2.9 g/dL (3.5-5.0); ALKALINE PHOSPHATASE 123 U/L (38-126); BLOOD UREA NITROGEN 21 mg/dL (7-17); CHLORIDE 103 mmol/L (98-107); Calcium 10.9 mg/dL (8.4-10.2); Carbon Dioxide 35 mmol/L (22-30); Creatinine 1 0.67 mg/dL (0.52-1.04); Glucose 150 mg/dL (74-106); Potassium 3.2 mmol/L (3.5-5.1); SGOT/AST 41 U/L (14-36); SGPT/ALT 30 U/L (0-35); SODIUM 144 mmol/L (137-145); Total Protein 6.1 g/dL (6.3-8.2)
[2017-09-24 06:19] LABS: BAND 1 % (0.0-2.0); Lymphocytes 17 % (24-44); Monocyte 2 % (0.0-12.0); Neutrophils 80 % (36.0-66.0); Total Cells Counted 100
[2017-09-24 06:20] LABS: ANISOCYTOSIS 1+; Platelet Estimate DECREASED (NORMAL); Poikilocytosis 1+; Polychromasia 1+
[2017-09-24] MEDS: Glucophage XR 500 MG PO SCH (08:03)
[2017-09-24] MEDS: NEURONTIN 300 MG PO SCH ×3 (08:03→14:52)
[2017-09-24] MEDS ORDERED: PERCOCET TABLET 5/325MG PO PRN (09:17)
[2017-09-24] MEDS ORDERED: VANCOCIN 1 GM VIAL*** 1.25 GM in Sodium Chloride 0.9% 250 ML 250 ML IV SCH (09:30)
[2017-09-24] MEDS ORDERED: TYLENOL 325 MG PO PRN (09:40)
[2017-09-24] MEDS ORDERED: Sodium Chloride 0.9% 10 ML FLUSH Syringe PICC PRN (09:40)
[2017-09-24] MEDS ORDERED: Colace 100 MG PO SCH (10:00)
[2017-09-24] MEDS ORDERED: ZOCOR 20MG PO SCH (10:00)
[2017-09-24] MEDS ORDERED: ROCEPHIN 1 Gm-D5w 50 ml Bag** 1 G/50 ML IVPB IV SCH (10:00)
[2017-09-24] MEDS ORDERED: NON-FORMULARY ITEM (Simvastatin 40 Mg [Zocor 40 Mg] 40 MG) PO SCH (10:00)
[2017-09-24] MEDS ORDERED: BUMEX 1 MG PO SCH (10:00)
[2017-09-24] MEDS ORDERED: Paxil 20 MG PO SCH (10:00)
[2017-09-24] MEDS ORDERED: SYNTHROID 75 MCG PO SCH (10:00)
[2017-09-24] MEDS ORDERED: SYNTHROID 150 MCG PO SCH (10:00)
[2017-09-24] MEDS: POTASSIUM CHLORIDE 20 mEq IN WATER 100ML 20 MEQ/100 ML BAG IV SCH ×2 (10:13→12:27)
--- NOTE | 2017-09-24 10:16 | PCM.DCORD ---
- Discharge Discharge Date: 09/24/17 Prescriptions: New Ceftriaxone 1 GM/50 ML PREMIX* [ROCEPHIN 1 Gm-D5w 50 ml Bag] 1 g IV Q24H10 2 Days #2 ivpb Vancomycin/0.9 % Sod Chloride [Vanco 1.25 gm/250 ml-0.9% NaCl] 1.25 gm IV Q12H 2 Days #5 plast..bag Potassium Chloride 10 Meq Tab* [Klor Con 10 MEQ] 10 meq PO TID #1 tab No Action Docusate Sodium 100 mg [Colace 100 MG] 100 mg PO DAILY Tizanidine HCl 4 mg [Zanaflex 4 MG] 4 mg PO HS Paroxetine HCl 20 mg [Paxil 20 MG] 20 mg PO DAILY Metformin HCl [Metformin HCl ER] 500 mg PO BID Simvastatin 40 mg [Zocor 40 mg] 40 mg PO DAILY Levothyroxine Sodium 75 Mcg [Synthroid 75 Mcg] 75 mcg PO DAILY Gabapentin 600 mg PO QID Bumetanide 1 mg [Bumex 1 mg] 2 mg PO DAILY tablet Heparin Flush 500 units/5 ml [Heparin Lock Flush 100 Units/ml 5ml Syringe ] 500 units PICC PRN PRN disp.syrin PRN Reason: Iv Port Flush NaCl 0.9% 10 ML FLUSH [Sodium Chloride 0.9% 10 ML FLUSH Syringe] 10 ml PICC PRN PRN disp.syrin PRN Reason: FLUSH Levothyroxine Sodium 150 Mcg [Synthroid 150 Mcg] 300 mcg PO DAILY@0600 tablet Acetaminophen 325 mg [Tylenol 325 mg] 650 mg PO Q4H/PRN PRN tablet PRN Reason: TEMP >101. Oxycodone HCl/Acetaminophen [Percocet 7.5-325 mg Tablet] 1 each PO Q6HPRN PRN #28 tablet MDD 4 PRN Reason: Pain Additional Instructions: [place] pharmacy to adjust Vancomycin dose as needed based on peak and trough Potassium level 09/25/17 contact family md with results Follow up with: EFRAIN JOHNSON [Primary Care Provider] - 1 Week
[2017-09-24 11:31] VITALS: BP 136/67; PULSE 82
[2017-09-24 13:16] VITALS: O2SAT 84
--- NOTE | 2017-09-26 14:42 | SSS ---
DISCHARGE DIAGNOSES: 1) CELLULITIS. 2) HYPERKALEMIA. 3) THROMBOCYTOPENIA. 4) MORBID OBESITY. 5) CHRONIC PAIN SYNDROME. HOSPITAL COURSE: The patient is a 62 year-old white female apparently at the correction was acting inappropriately. The nurses there stated the patient was placing things in her vagina and was being inappropriate in regards to her response to the nurses at times playing like she was unresponsive and other times arguing with the nurses. The patient had apparently been in the hospital recently after an episode of cellulitis. The patient's morbid obesity has her basically wheelchair bound. Her states that the [employer] had put in a ramp for her in the home and she was setting up against the door watching them. Apparently the door was resting against the top of her foot and she developed cellulitis there and actually blistered up and denuded the entire top part of her forefoot. The patient has been placed on IV Vancomycin and Rocephin. She had a PICC line placed and again sent to rehab for treatment in the correction as well as PT for wound care management. The patient after being brought to the emergency room was admitted to the hospital for repletion of potassium. She received 50 mEq in the emergency room and placed on 20 mEq IV. By the next morning the patient was lying in bed moaning and asking for pain medication. After discussion with her family they understand that essentially she was only admitted for repletion of her potassium and nothing else had really changed. The patient's potassium when came in initially was 3.0 and had risen to 3.2 by the next morning. We gave her another 40 mEq of potassium rider and placed her potassium at 10 mEq t.i.d. It was noted the patient is on Bumex orally but no routine potassium replacement. ALLERGIES: ATROPINE, LOMOTIL, DURAGESIC, PENICILLIN. MEDICATIONS: At the correction includes: Docusate, gabapentin 600 mg four times a day, levothyroxine 75 mcg daily, metformin extended release 500 mg b.i.d., Paxil 20 mg a day, Simvastatin 40 mg a day, temazepam 4 mg. Apparently she has been receiving Percocet 7.5 mg every six hours at the correction for pain control. 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 PAST SURGICAL HISTORY: Significant for cholecystectomy, hysterectomy, joint replacement, gastric bypass. PHYSICAL EXAMINATION: Her vital signs on admission showed temperature 98.0F, pulse 87, respiratory rate 16, blood pressure 131/60. O2 saturation 93% on room air. HEENT: Normocephalic, atraumatic. Pupils equal round reactive to light. Extraocular movements intact. Oropharynx is pink and moist. NECK: Supple without lymphadenopathy, thyromegaly or JVD. CHEST: Clear to auscultation. HEART: Regular rate and rhythm without murmurs, rubs or gallops. ABDOMEN: No palpable masses were felt. EXTREMITIES: Reveal chronic lymph edema. There is redness and swelling approximately half way up her dejesus on the left side. Both feet are currently bandaged. Pictures show the forefoot to be completely denuded but good granulation tissue is present without evidence of ongoing infection present. NEUROLOGIC: The patient is alert and oriented x3. No focal deficits were noted. LAB DATA AND TESTS: Revealed a white blood cell count of 5,000, hemoglobin 13.1, PLT count 33,000. Apparently the patient does see Dr. Hearn and routinely had these problems with the thrombocytopenia. She has in fact received platelet transfusions in the past. The patient's sugar was 150, BUN 21, creatinine 0.67. The most recent potassium was 3.2, sodium 144. Her liver enzymes were essentially normal. Total bilirubin was elevated at 2.10. Prealbumin 4.65. UA with specific gravity of 1.020. There was 15 to 25 white blood cells per high power field and greater than 100 red blood cells. Urine drug screen was negative, in fact even though the patient is known to be taking Percocet on a regular basis. She had a head CT scan which essentially showed no acute problems. Chest x-ray showed some atelectasis but essentially without any significant problem. At this point the patient will be sent back to the correction after the IV potassium rider. She will increase her potassium to 10 mEq t.i.d., will recheck her potassium in the morning at the correction where she will be followed up with PT. She will continue to receive Rocephin and Vancomycin IV as previously ordered for her cellulitis problems and she will be followed up by Dr. Beltre in the correction.
== END 2017-09-24 15:45 ==
LOC: ED 12:37 → MED SURG 16:57
PROVIDERS: ADMIT Family Medicine; ATTEND Family Medicine
DX: L03.90 Cellulitis, unspecified (principal); E87.5 Hyperkalemia; D69.6 Thrombocytopenia, unspecified; E66.01 Morbid (severe) obesity due to excess calories; G89.4 Chronic pain syndrome; Z98.84 Bariatric surgery status; I10 Essential (primary) hypertension; E03.9 Hypothyroidism, unspecified; E11.9 Type 2 diabetes mellitus without complications; Z79.4 Long term (current) use of insulin; Z79.899 Other long term (current) drug therapy
CPT/HCPCS: 36000; 36415; 70450; 71045; 80053; 80307; 81000; 82962; 84134; 85025; 85027; 87086; 93005; 93268; 94762; 96360; 99285; G0378; G0481; J0696; J1642; J3370; J3480; A9270-GY; G0480

== ENCOUNTER 2017-09-26 12:34 | Inpatient (IN) | payer OTHER ==
[2017-09-26] MEDS ORDERED: Sodium Chloride 0.9% 1000 ML 1,000 ML IV STA (12:47)
--- NOTE | 2017-09-26 12:56 | ERPHSYRPT ---
- History of Present Illness Time Seen by Provider: 09/26/17 12:51 Source: EMS, [facility] Exam Limitations: clinical condition Patient Subjective Stated Complaint: pt moaning, says "it hurts" Triage Nursing Assessment: pt from [facility] via stretcher. eyes closed, resp unlab, moaning. 5L nc, bilat feet wrapped. will open her eyes to name and say "yeah?" will not answer other questions. Physician History: 62-year-old white female with history of morbid obesity, CVA, cataracts, myocardial infarction, hypertension, diabetes, hypothyroidism, osteoarthritis, fibromyalgia, gallbladder disease, depression, lumbago She is [facility] with complaint of decreased level of consciousness at the penitentiary symptoms since today Patient was seen for similar symptoms 3 days ago was admitted for mental status change and hypokalemia. On arrival patient will open her eyes to command she' ll open her mouth she balances her self with her primary hand on the handrail but she refuses to move with command. Apparently tells the nurse that "it hurts a does not specify anything else will not talk to me. Past medical history includes morbid obesity, CVA, cataracts, [place], hypertension , diabetes, hypothyroid, osteoarthritis, fibromyalgia, gallbladder disease, depression, lumbago Past surgical history includes cholecystectomy, joint replacement, hysterectomy , , right knee replacement, gastric bypass Social history is positive for tobacco use Timing/Duration: today Severity: moderate Modifying Factors: Improves With: nothing Associated Symptoms: other (mental status change per penitentiary, patient not answering my questions) Allergies/Adverse Reactions: atropine sulfate [From Lomotil] Allergy (Verified 09/23/17 12:53) skin rash/hives diphenoxylate HCl [From Lomotil] Allergy (Verified 09/23/17 12:53) skin rash/hives fentanyl [From Duragesic] Allergy (Verified 09/23/17 12:53) skin rash/hives penicillin G Allergy (Verified 09/23/17 12:53) skin rash/hive Home Medications: Docusate Sodium 100 mg [Colace 100 MG] 100 mg PO DAILY 09/12/17 [History] Gabapentin 600 mg PO QID 09/12/17 [History] Levothyroxine Sodium 75 Mcg [Synthroid 75 Mcg] 75 mcg PO DAILY 09/12/17 [ History] Metformin HCl [Metformin HCl ER] 500 mg PO BID 09/12/17 [History] Paroxetine HCl 20 mg [Paxil 20 MG] 20 mg PO DAILY 09/12/17 [History] Simvastatin 40 mg [Zocor 40 mg] 40 mg PO DAILY 09/12/17 [History] Tizanidine HCl 4 mg [Zanaflex 4 MG] 4 mg PO HS 09/12/17 [History] Hx Tetanus, Diphtheria Vaccination/Date Given: (unknown) Hx Influenza Vaccination/Date Given: No Hx Pneumococcal Vaccination/Date Given: No - Review of Systems Constitutional: No Fever, No Chills Eyes: No Symptoms Ears, Nose, & Throat: No Symptoms Respiratory: No Cough, No Dyspnea Cardiac: No Chest Pain, No Edema, No Syncope Abdominal/Gastrointestinal: No Abdominal Pain, No Nausea, No Vomiting, No Diarrhea Genitourinary Symptoms: No Dysuria Musculoskeletal: No Back Pain, No Neck Pain Skin: No Rash Neurological: No No Symptoms (patient will not answer questions to [facility] states mental status change states was alert and oriented this am) Psychological: No Symptoms Endocrine: No Symptoms All Other Systems: Unable due to condition - Past Medical History Pertinent Past Medical History: Yes Neurological History: Stroke ENT History: Cataracts Cardiac History: Myocardial Infarction ([place]), Hypertension Respiratory History: CHF Endocrine Medical History: Diabetes Type II, Hypothyroidism Musculoskeletal History: Osteoarthritis, Fibromyalgia GI Medical History: Gallbladder Disease History: No Pertinent History Psycho-Social History: Depression Female Reproductive Disorders: No Pertinent History Other Medical History: lumbago - Past Surgical History Past Surgical History: Yes Neuro Surgical History: No Pertinent History Cardiac: No Pertinent History Respiratory: No Pertinent History Gastrointestinal: Cholecystectomy Genitourinary: No Pertinent History Musculoskeletal: Joint Replacement Female Surgical History: Hysterectomy, Section Other Surgical History: right knee replacement, gastric bypass, - Social History Smoking Status: Current every day smoker How long have you smoked: 50 Exposure to second hand smoke: Yes Drug Use: none Patient Lives Alone: No - Nursing Vital Signs Nursing Vital Signs: Initial Vital Signs Temperature 98.2 F 09/26/17 12:35 Pulse Rate 98 H 09/26/17 12:35 Respiratory Rate 24 09/26/17 12:35 Blood Pressure 138/86 09/26/17 12:35 O2 Sat by Pulse Oximetry 94 L 09/26/17 12:35 - Physical Exam General Appearance: other (Morbidly obese white female , opens eyes to command opens mouth to command moans) Eye Exam: PERRL/EOMI, eyes nml inspection Ears, Nose, Throat Exam: normal ENT inspection, TMs normal, pharynx normal, moist mucous membranes Neck Exam: normal inspection, non-tender, supple, full range of motion Respiratory Exam: normal breath sounds, lungs clear, No respiratory distress Cardiovascular Exam: regular rate/rhythm, normal heart sounds, normal peripheral pulses Gastrointestinal/Abdomen Exam: soft, normal bowel sounds, No tenderness, No mass Back Exam: normal inspection, normal range of motion, No CVA tenderness, No vertebral tenderness Extremity Exam: normal inspection, normal range of motion, pelvis stable Neurologic Exam: alert, cooperative, 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 Interval development of dense retrocardiac left basilar airspace disease which obscures the left hemidiaphragm and partially obscures the left costophrenic angle, consistent with left lower lobe infiltrate and/or, atelectasis. Correlate clinically reguarding pneumonia. 2. The remainder of the findings appear similar with mild bilateral perihilar bronchovascular prominece, minimal transverse linear scarring or plate atelectasis within both costophrenic angles and a heart size at the upper limits of normal.. 3. Right-sided PICC noted with tip in projection of right atrium) Ordered Tests: Active Orders 24 hr Category Date Time Status Accucheck STAT Care 09/26/17 12:49 Active Cath for Specimen-Straight STAT Care 09/26/17 12:48 Active EKG-ER Only STAT Care 09/26/17 12:47 Active IV Insertion STAT Care 09/26/17 12:47 Active CHEST 1 VIEW (PORTABLE) Stat Exams 09/26/17 12:48 Completed ACETAMINOPHEN Stat Lab 09/26/17 13:10 Completed AMYLASE Stat Lab 09/26/17 13:10 Completed BLOOD CULTURE Stat Lab 09/26/17 13:10 Received CBC W DIFF Stat Lab 09/26/17 13:00 Completed CMP Stat Lab 09/26/17 13:10 Completed CULTURE,URINE Stat Lab 09/26/17 12:47 Received LIPASE Stat Lab 09/26/17 13:10 Completed Lactic Acid Stat Lab 09/26/17 12:47 Results Manual Differential NC Stat Lab 09/26/17 13:00 Completed Pathologist Review Stat Lab 09/26/17 13:00 Completed SALICYLATE Stat Lab 09/26/17 13:10 Completed TSH [TSH, 3RD Generation] Stat Lab 09/26/17 13:00 Completed UA W/ MICROSCOPIC Stat Lab 09/26/17 12:47 Completed Urine Triage Profile Stat Lab 09/26/17 13:21 Completed VENOUS BLOOD GAS Stat Lab 09/26/17 12:50 Completed Respiratory Nebulizer STAT RT 09/26/17 13:18 Completed Medication Summary Generic Name Dose Route Start Last Admin Trade Name Freq PRN Reason Stop Dose Admin Sodium Chloride 1,000 mls @ 80 mls/hr 09/26/17 14:30 09/26/17 14:31 Sodium Chloride 0.9% 1000 Ml IV 10/26/17 14:29 80 mls/hr .[id number] ALEX Administration Discontinued Medications Generic Name Dose Route Start Last Admin Trade Name Freq PRN Reason Stop Dose Admin Albuterol Sulfate 2.5 mg 09/26/17 13:18 09/26/17 13:32 Proventil 2.5 Mg/3 Ml Neb IH 09/26/17 13:19 2.5 mg STAT ONE Administration Albuterol Sulfate Confirm 09/26/17 13:24 Proventil 2.5 Mg/3 Ml Neb Administered 09/26/17 13:25 Dose 2.5 mg IH .STK-MED ONE Sodium Chloride 1,000 mls @ 999 mls/hr 09/26/17 12:47 09/26/17 13:23 Sodium Chloride 0.9% 1000 Ml IV 09/26/17 13:47 999 mls/hr .[id number] STA Administration Sodium Chloride Confirm 09/26/17 13:22 Sodium Chloride 0.9% 1000 Ml Administered 09/26/17 13:23 Dose 1,000 mls @ ud .ROUTE .STK-MED ONE Ceftriaxone Sodium/Dextrose 1 g in 50 mls @ 100 mls/hr 09/26/17 13:45 13:53 Rocephin 1 Gm-D5w 50 Ml Bag IV 09/26/17 14:14 100 mls/hr STAT STA 100 mls/hr Administration Ceftriaxone Sodium/Dextrose Confirm 09/26/17 13:48 Rocephin 1 Gm-D5w 50 Ml Bag Administered 09/26/17 13:49 Dose 1 g in 50 mls @ ud IV .STK-MED ONE Lab/Rad Data: Laboratory Result Diagrams 09/26/17 13:00 09/26/17 13:10 Laboratory Results 09/26/17 09/26/17 09/26/17 Range/Units 13:21 13:10 13:10 WBC (4.0-10.5) K/mm3 RBC (4.1-5.4) M/mm3 Hgb (12.0-16.0) gm/dl Hct (35-47) % MCV (78-100) fl MCH (26-32) pg MCHC (32-36) g/dl RDW (11.5-14.0) % Plt Count (150-450) K/mm3 MPV (6-9.5) fl Absolute Granulocytes (1.4-6.9) Segmented Neutrophils (36.0-66.0) % Band Neutrophils (0.0-2.0) % Lymphocytes (Manual) (24-44) % Monocytes (Manual) (0.0-12.0) % Eosinophils (Manual) (0.00-3.0) % Toxic Granulation Platelet Estimate (NORMAL) RBC Morphology Polychromasia Anisocytosis Macrocytosis Smear Path Review pO2/FiO2 Ratio % VBG pH (7.32-7.42) VBG pCO2 at Pat Temp (42-55) mm/Hg VBG pO2 at Pat Temp (25-40) mm/Hg VBG HCO3 (22-28) meq/L VBG O2 Sat ([place]) (95-100) VBG Base Excess (-2.0-2.0) VBG Hemoglobin VBG Carboxyhemoglobin (0.0-6.9) % T HGB POC Potassium (3.5-5.1) Sodium (137-145) mmol/L Potassium (3.5-5.1) mmol/L Chloride (98-107) mmol/L Carbon Dioxide (22-30) mmol/L Anion Gap (5-15) MEQ/L BUN (7-17) mg/dL Creatinine (0.52-1.04) mg/dL Estimated GFR ML/MIN Glucose (74-106) mg/dL Lactic Acid (0.4-2.0) Calcium (8.4-10.2) mg/dL Total Bilirubin (0.2-1.3) mg/dL AST (14-36) U/L ALT (0-35) U/L Alkaline Phosphatase (38-126) U/L Serum Total Protein (6.3-8.2) g/dL Albumin (3.5-5.0) g/dL Amylase (30-110) U/L Lipase (23-300) U/L Free T4 Direct 3.17 H (0.76-1.46) ng/dL TSH 3rd Generation (0.47-4.68) mIU/L Ur Collection Type Urine Color (YELLOW) Urine Appearance (CLEAR) Urine pH (5-6) Ur Specific [place] (1.005-1.025) Urine Protein (Negative) Urine Ketones (NEGATIVE) Urine Blood (0-5) Roland/ul Urine Nitrite (NEGATIVE) Urine Bilirubin (NEGATIVE) Urine Urobilinogen (0-1) mg/dL Ur Leukocyte Esterase (NEGATIVE) Urine Microscopic RBC (0-2) /HPF Urine Microscopic WBC (0-5) /HPF Ur Epithelial Cells (FEW) /HPF Urine Bacteria (NEGATIVE) /HPF Urine Mucus (NEGATIVE) /HPF Urine Culture Reflexed (NO) Urine Glucose (NEGATIVE) mg/dL Salicylates < 1.0 L (2-20) mg/dL Urine Opiates Level POSITIVE (NEGATIVE) Ur Methadone NEGATIVE (NEGATIVE) Acetaminophen < 10 L (10-30) ug/ml Urine Barbiturates NEGATIVE (NEGATIVE) Ur Phencyclidine (PCP) NEGATIVE (NEGATIVE) Urine Amphetamine NEGATIVE (NEGATIVE) U Benzodiazepine Level NEGATIVE (NEGATIVE) Urine Cocaine NEGATIVE (NEGATIVE) Urine Marijuana (THC) NEGATIVE (NEGATIVE) Specimen Received 09/26/17 09/26/17 09/26/17 Range/Units 13:10 13:00 13:00 WBC 5.4 (4.0-10.5) K/mm3 RBC 3.96 L (4.1-5.4) M/mm3 Hgb 13.6 (12.0-16.0) gm/dl Hct 41.7 (35-47) % MCV 105.3 H (78-100) fl MCH 34.3 H (26-32) pg MCHC 32.6 (32-36) g/dl RDW 19.2 H (11.5-14.0) % Plt Count 29 L* (150-450) K/mm3 MPV 12.8 H (6-9.5) fl Absolute Granulocytes 4.13 (1.4-6.9) Segmented Neutrophils 84 H (36.0-66.0) % Band Neutrophils 1 (0.0-2.0) % Lymphocytes (Manual) 11 L (24-44) % Monocytes (Manual) 3 (0.0-12.0) % Eosinophils (Manual) 1 (0.00-3.0) % Toxic Granulation 1+ Platelet Estimate DECREASED (NORMAL) RBC Morphology ABNORMAL Polychromasia RARE Anisocytosis 2+ Macrocytosis 2+ Smear Path Review pO2/FiO2 Ratio % VBG pH (7.32-7.42) VBG pCO2 at Pat Temp (42-55) mm/Hg VBG pO2 at Pat Temp (25-40) mm/Hg VBG HCO3 (22-28) meq/L VBG O2 Sat ([place]) (95-100) VBG Base Excess (-2.0-2.0) VBG Hemoglobin VBG Carboxyhemoglobin (0.0-6.9) % T HGB POC Potassium (3.5-5.1) Sodium 149 H (137-145) mmol/L Potassium 3.6 (3.5-5.1) mmol/L Chloride 104 (98-107) mmol/L Carbon Dioxide 35 H (22-30) mmol/L Anion Gap 13.7 (5-15) MEQ/L BUN 31 H (7-17) mg/dL Creatinine 0.78 (0.52-1.04) mg/dL Estimated GFR > 60.0 ML/MIN Glucose 157 H (74-106) mg/dL Lactic Acid (0.4-2.0) Calcium 12.5 H* (8.4-10.2) mg/dL Total Bilirubin 1.90 H (0.2-1.3) mg/dL AST 73 H (14-36) U/L ALT 45 H (0-35) U/L Alkaline Phosphatase 162 H (38-126) U/L Serum Total Protein 7.2 (6.3-8.2) g/dL Albumin 3.2 L (3.5-5.0) g/dL Amylase 75 (30-110) U/L Lipase 359 H (23-300) U/L Free T4 Direct (0.76-1.46) ng/dL TSH 3rd Generation 4.290 (0.47-4.68) mIU/L Ur Collection Type Urine Color (YELLOW) Urine Appearance (CLEAR) Urine pH (5-6) Ur Specific [place] (1.005-1.025) Urine Protein (Negative) Urine Ketones (NEGATIVE) Urine Blood (0-5) Roland/ul Urine Nitrite (NEGATIVE) Urine Bilirubin (NEGATIVE) Urine Urobilinogen (0-1) mg/dL Ur Leukocyte Esterase (NEGATIVE) Urine Microscopic RBC (0-2) /HPF Urine Microscopic WBC (0-5) /HPF Ur Epithelial Cells (FEW) /HPF Urine Bacteria (NEGATIVE) /HPF Urine Mucus (NEGATIVE) /HPF Urine Culture Reflexed (NO) Urine Glucose (NEGATIVE) mg/dL Salicylates (2-20) mg/dL Urine Opiates Level (NEGATIVE) Ur Methadone (NEGATIVE) Acetaminophen (10-30) ug/ml Urine Barbiturates (NEGATIVE) Ur Phencyclidine (PCP) (NEGATIVE) Urine Amphetamine (NEGATIVE) U Benzodiazepine Level (NEGATIVE) Urine Cocaine (NEGATIVE) Urine Marijuana (THC) (NEGATIVE) Specimen Received 09/26/17 09/26/17 09/26/17 Range/Units 12:50 12:47 12:47 WBC (4.0-10.5) K/mm3 RBC (4.1-5.4) M/mm3 Hgb (12.0-16.0) gm/dl Hct (35-47) % MCV (78-100) fl MCH (26-32) pg MCHC (32-36) g/dl RDW (11.5-14.0) % Plt Count (150-450) K/mm3 MPV (6-9.5) fl Absolute Granulocytes (1.4-6.9) Segmented Neutrophils (36.0-66.0) % Band Neutrophils (0.0-2.0) % Lymphocytes (Manual) (24-44) % Monocytes (Manual) (0.0-12.0) % Eosinophils (Manual) (0.00-3.0) % Toxic Granulation Platelet Estimate (NORMAL) RBC Morphology Polychromasia Anisocytosis Macrocytosis Smear Path Review pO2/FiO2 Ratio 21.0 % VBG pH 7.40 (7.32-7.42) VBG pCO2 at Pat Temp 68 H* (42-55) mm/Hg VBG pO2 at Pat Temp 39 (25-40) mm/Hg VBG HCO3 42.1 H* (22-28) meq/L VBG O2 Sat ([place]) 78.5 L (95-100) VBG Base Excess 13.9 H (-2.0-2.0) VBG Hemoglobin 14.0 VBG Carboxyhemoglobin 4.4 (0.0-6.9) % T HGB POC Potassium 3.4 L (3.5-5.1) Sodium (137-145) mmol/L Potassium (3.5-5.1) mmol/L Chloride (98-107) mmol/L Carbon Dioxide (22-30) mmol/L Anion Gap (5-15) MEQ/L BUN (7-17) mg/dL Creatinine (0.52-1.04) mg/dL Estimated GFR ML/MIN Glucose (74-106) mg/dL Lactic Acid 3.0 H (0.4-2.0) Calcium (8.4-10.2) mg/dL Total Bilirubin (0.2-1.3) mg/dL AST (14-36) U/L ALT (0-35) U/L Alkaline Phosphatase (38-126) U/L Serum Total Protein (6.3-8.2) g/dL Albumin (3.5-5.0) g/dL Amylase (30-110) U/L Lipase (23-300) U/L Free T4 Direct (0.76-1.46) ng/dL TSH 3rd Generation (0.47-4.68) mIU/L Ur Collection Type CATH Urine Color YELLOW (YELLOW) Urine Appearance CLOUDY (CLEAR) Urine pH 6.0 (5-6) Ur Specific [place] 1.020 (1.005-1.025) Urine Protein 50 (Negative) Urine Ketones MODERATE (NEGATIVE) Urine Blood 250 (0-5) Roland/ul Urine Nitrite NEGATIVE (NEGATIVE) Urine Bilirubin NEGATIVE (NEGATIVE) Urine Urobilinogen NORMAL (0-1) mg/dL Ur Leukocyte Esterase 2+ (NEGATIVE) Urine Microscopic RBC >100 (0-2) /HPF Urine Microscopic WBC 5-10 (0-5) /HPF Ur Epithelial Cells MODERATE (FEW) /HPF Urine Bacteria MODERATE (NEGATIVE) /HPF Urine Mucus MODERATE (NEGATIVE) /HPF Urine Culture Reflexed YES (NO) Urine Glucose NEGATIVE (NEGATIVE) mg/dL Salicylates (2-20) mg/dL Urine Opiates Level (NEGATIVE) Ur Methadone (NEGATIVE) Acetaminophen (10-30) ug/ml Urine Barbiturates (NEGATIVE) Ur Phencyclidine (PCP) (NEGATIVE) Urine Amphetamine (NEGATIVE) U Benzodiazepine Level (NEGATIVE) Urine Cocaine (NEGATIVE) Urine Marijuana (THC) (NEGATIVE) Specimen Received 09/26/17 1340 - Progress Progress: improved Progress Note: 09/26/17 14:27 This is a 62-year-old white female who was recently admitted for mental status change as well as hypokalemia. [facility] to have decreased level of consciousness. On arrival patient would open her eyes she would open her mouth for exam she would tell the nurse that she had some pain was not specific as to where this pain was. Patient was noted to have stable vitals she was on 5 L of oxygen venous blood gases showed a pH of 7.4 PCO2 68 Patient with a lactate of 3.0 patient with a chemistry sodium 147 potassium 3.6 chloride 104 bicarbonate 35 BUN 31 creatinine 0.78 and glucose 157 White count was noted to be 5.4 hemoglobin 13.6 hematocrit 41.7 Calcium was elevated at 12.5 Patient's TSH and free T4 pending. Chest x-ray is remarkable for interval development of dense retrocardiac left basilar airspace disease which obscures the left hemidiaphragm and partly obscures the left costophrenic angle consistent with a left lower lobe infiltrate and/or atelectasis there is also mild bilateral perihilar bronchovascular prominence minimal transverse linear scarring or plate atelectasis within both costophrenic angles and a heart size of the upper limits of normal. Blood cultures were obtained on this patient patient was given 1 L of normal saline I had considered giving patient normal saline at 125 mL per hour however I discussed this with Dr. melgar and she would like the patient to receive normal saline at 80 mL per hour secondary to risk for CHF. Patient's EKG showed normal sinus rhythm 97 bpm normal axis no acute ST or T wave changes Patient did appear to be somewhat somnolent patient did have a head CT 3 days ago. Will plan to place patient on ICU diagnosis 1 mental status change. 2 pneumonia. 3 hypercalcemia. Patient will continue to receive IV normal saline she has received a bolus of 1 L and we'll continue to [address] Melgar will monitor her calcium and her other labs. It is noted that the patient was recently receiving Rocephin and vancomycin. Patient will have neuro checks every 4 hours. - Departure Time of Disposition: 14:33 Departure Disposition: Observation Clinical Impression: Hypercalcemia Mental status change Qualifiers: Altered mental status type: unspecified Qualified Code(s): R41.82 - Altered mental status, unspecified Pneumonia Qualifiers: Pneumonia type: due to unspecified organism Laterality: left Lung location: lower lobe of lung Qualified Code(s): J18.1 - Lobar pneumonia, unspecified organism Condition: Fair Critical Care Time: No Referrals: SONYA MELGAR [Primary Care Provider] -
[2017-09-26 13:08] LABS: VBG BASE EXCESS 13.9 (-2.0-2.0); VBG CARBOXYHEMOGLOBIN 4.4 % T HGB (0.0-6.9); VBG HCO3- 42.1 meq/L (22-28); VBG O2 SATURATION 78.5 (95-100); VBG POTASSIUM 3.4 (3.5-5.1); VBG pH 7.4 (7.32-7.42)
[2017-09-26] MEDS ORDERED: PROVENTIL 2.5 MG/3 ML NEB IH ONE ×2 (13:18→13:24)
[2017-09-26] MEDS ORDERED: Sodium Chloride 0.9% 1000 ML 1,000 ML ONE (13:22)
[2017-09-26 13:24] LABS: Granulocyte Absolute (ANC) 4.13 (1.4-6.9); Hematocrit 41.7 % (35-47); Hemoglobin 13.6 gm/dl (12.0-16.0); Mean Cell Volume 105.3 fl (78-100); Mean Corpuscular Hemoglobin 34.3 pg (26-32); Mean Corpuscular Hgb Concent. 32.6 g/dl (32-36); Mean Platelet Volume 12.8 fl (6-9.5); Red Blood Count 3.96 M/mm3 (4.1-5.4); Red Cell Distribution Width 19.2 % (11.5-14.0); White Blood Count 5.4 K/mm3 (4.0-10.5)
[2017-09-26 13:34] LABS: Platelet Count 29 K/mm3 (150-450)
--- NOTE | 2017-09-26 13:38 | XRAY ---
Exam: AP upright portable chest film from 09/26/2017. Comparison: AP portable chest film from 09/23/2017. Indication: Mental status changes, PICC in right arm. Findings: Inspiratory effort is less than optimal. The transverse heart size appears at the upper limits of normal. There is increased radiopacity at the left lung base which newly obscures the left hemidiaphragm. This is consistent with left basilar airspace disease and may reflect infiltrate and/or atelectasis. A small amount of concomitant left basilar pleural fluid is not excluded. In addition, there are some minimal transverse linear markings within both costophrenic angles which likely represents plate atelectasis or scarring. The paula and mediastinal structures appear essentially unchanged with some central bilateral perihilar bronchovascular prominence. The right costophrenic angle appears sharp. No pneumothorax is seen. Right-sided PICC line is seen with the tip pointing inferiorly in the projection of the right atrium. Numerous surgical clips are seen projected over the epigastric region. Correlate with surgical history. No acute osseous process is evident. Impression: 1. Interval development of dense retrocardiac left basilar airspace disease which obscures the left hemidiaphragm and partially obscures the left costophrenic angle. This is consistent with left lower lobe infiltrate and/or atelectasis. Correlate clinically regarding pneumonia. 2. The remainder the findings appears similar with mild bilateral perihilar bronchovascular prominence, minimal transverse linear scarring or plate atelectasis within both costophrenic angles, and a heart size at the upper limits of normal. 3. Right-sided PICC line noted with tip in projection of right atrium.
[2017-09-26 13:44] LABS: Amphetamine,Urine NEGATIVE (NEGATIVE); Barbiturate,Urine NEGATIVE (NEGATIVE); Benzodiazepine,Urine NEGATIVE (NEGATIVE); Cocaine,Urine NEGATIVE (NEGATIVE); Methadone,Urine NEGATIVE (NEGATIVE); Opiate,Urine POSITIVE (NEGATIVE); PCP,Urine NEGATIVE (NEGATIVE); THC,Urine NEGATIVE (NEGATIVE)
[2017-09-26] MEDS ORDERED: ROCEPHIN 1 Gm-D5w 50 ml Bag** 1 G/50 ML IVPB IV STA (13:45)
[2017-09-26] MEDS ORDERED: ROCEPHIN 1 Gm-D5w 50 ml Bag** 1 G/50 ML IVPB IV ONE (13:48)
[2017-09-26 13:54] LABS: Appearance CLOUDY (CLEAR); Bacteria MODERATE /HPF (NEGATIVE); Bilirubin NEGATIVE (NEGATIVE); Blood 250 Ery/ul (0-5); Epithelial Cells MODERATE /HPF (FEW); Glucose NEGATIVE (NEGATIVE); Ketones MODERATE (NEGATIVE); Leukocyte Esterase 2+ (NEGATIVE); Mucus MODERATE /HPF (NEGATIVE); Nitrite NEGATIVE (NEGATIVE); Protein,Urine Dip 50 (Negative); RBC >100 /HPF (0-2); Urobilinogen NORMAL mg/dL (0-1)
[2017-09-26 13:55] LABS: ACETAMINOPHEN < 10 ug/ml (10-30); SALICYLATE < 1.0 mg/dL (2-20)
[2017-09-26 13:56] LABS: ALBUMIN 3.2 g/dL (3.5-5.0); ALKALINE PHOSPHATASE 162 U/L (38-126); AMYLASE 75 U/L (30-110); ANION GAP 13.7 MEQ/L (5-15); BLOOD UREA NITROGEN 31 mg/dL (7-17); CHLORIDE 104 mmol/L (98-107); Carbon Dioxide 35 mmol/L (22-30); Creatinine 1 0.78 mg/dL (0.52-1.04); Glucose 157 mg/dL (74-106); LIPASE 359 U/L (23-300); Potassium 3.6 mmol/L (3.5-5.1); SGOT/AST 73 U/L (14-36); SGPT/ALT 45 U/L (0-35); SODIUM 149 mmol/L (137-145); Total Protein 7.2 g/dL (6.3-8.2)
[2017-09-26 14:05] LABS: Calcium 12.5 mg/dL (8.4-10.2)
[2017-09-26 14:30] LABS: BAND 1 % (0.0-2.0); Eosinophil 1 % (0.00-3.0); Lymphocytes 11 % (24-44); Monocyte 3 % (0.0-12.0); Neutrophils 84 % (36.0-66.0); Total Cells Counted 100
[2017-09-26] MEDS ORDERED: Sodium Chloride 0.9% 1000 ML 1,000 ML IV SCH ×2 (14:30→15:55)
[2017-09-26 14:31] LABS: ANISOCYTOSIS 2+; Macrocytosis 2+; Platelet Estimate DECREASED (NORMAL); Polychromasia RARE; Toxic Granulation 1+
[2017-09-26] MEDS ORDERED: PROVENTIL 2.5 MG/3 ML NEB IH PRN (15:55)
[2017-09-26] MEDS ORDERED: NovoLOG Insulin SQ PRN (15:55)
[2017-09-26] MEDS ORDERED: PHARMACY DOSING REQUEST MC ONE (16:21)
[2017-09-26] MEDS ORDERED: LEVOFLOXACIN 750MG/150ML D5W 750 MG/150 ML BAG IV SCH (17:00)
[2017-09-26 17:04] LABS: A-aADO2 180; ABG HEMOGLOBIN 13.7; ABG POTASSIUM 3.4 (3.5-5.1); ARTERIAL BLD GAS O2 SATURATION 94.3 % (95-100); ARTERIAL BLOOD GAS FIO2 45 %; ARTERIAL BLOOD GAS PO2 61 mmHg (75-100); ARTERIAL BLOOD GAS VENT MODE BiPAP; ARTERIAL BLOOD GAS pH 7.39 (7.35-7.45); HCO3- 38.7 (22-28); HGB O2 SAT 90.4 g/dF (94-100); Methhemoglobin 1.1 % (1.4-1.5); paO2 pAO1 0.25
[2017-09-26 17:05] LABS: ABG SITE RIGHT RADIAL; ALLEN TEST OK? YES; ARTERIAL BLOOD GAS PCO2 64 mmHg (35-45)
[2017-09-26] MEDS ORDERED: Sodium Chloride 0.9% 10 ML FLUSH Syringe PICC PRN (17:28)
[2017-09-26 20:34] LABS: Lactic Acid 3.3 (0.4-2.0)
[2017-09-26 20:58] LABS: ANION GAP 10.5 MEQ/L (5-15); BLOOD UREA NITROGEN 31 mg/dL (7-17); CHLORIDE 107 mmol/L (98-107); Carbon Dioxide 35 mmol/L (22-30); Creatinine 1 0.66 mg/dL (0.52-1.04); Glucose 178 mg/dL (74-106); Potassium 3.5 mmol/L (3.5-5.1); SODIUM 149 mmol/L (137-145)
[2017-09-26 21:07] LABS: Calcium 12.1 mg/dL (8.4-10.2)
[2017-09-26] MEDS ORDERED: MIACALCIN SQ ONE (21:30)
[2017-09-26] MEDS: D5w/0.45NS W/ 40MEQ KCl 1000 Ml 1,000 ML IV SCH (21:32)
[2017-09-26 21:39] LABS: A-aADO2 186; ABG HEMOGLOBIN 13.7; ABG POTASSIUM 3.4 (3.5-5.1); ABG SITE RIGHT RADIAL; ALLEN TEST OK? YES; ARTERIAL BLD GAS O2 SATURATION 97.1 % (95-100); ARTERIAL BLOOD GAS BASE EXCESS 11.7 (-2.0-2.0); ARTERIAL BLOOD GAS FIO2 45 %; ARTERIAL BLOOD GAS PCO2 53 mmHg (35-45); ARTERIAL BLOOD GAS PO2 69 mmHg (75-100); ARTERIAL BLOOD GAS pH 7.46 (7.35-7.45); CARBOXYHEMOGLOBIN 2.7 % THgb (0.0-6.9); HCO3- 37.7 (22-28); HGB O2 SAT 93.5 g/dF (94-100); Methhemoglobin 1.1 % (1.4-1.5); paO2 pAO1 0.27
[2017-09-26] MEDS ORDERED: NON-FORMULARY ITEM (Simvastatin 40 Mg [Zocor 40 Mg] 40 MG) PO SCH (22:00)
[2017-09-26] MEDS ORDERED: Klor Con 10 MEQ PO SCH (22:00)
[2017-09-26] MEDS ORDERED: ZOCOR 20MG PO SCH (22:00)
[2017-09-27] MEDS ORDERED: TYLENOL 325 MG PO PRN (03:50)
[2017-09-27] MEDS ORDERED: Lopressor 25MG Tab PO ONE (03:50)
[2017-09-27 05:28] LABS: Granulocyte Absolute (ANC) 7.51 (1.4-6.9); Hematocrit 41.9 % (35-47); Hemoglobin 13.7 gm/dl (12.0-16.0); Mean Cell Volume 103.2 fl (78-100); Mean Corpuscular Hemoglobin 33.7 pg (26-32); Mean Corpuscular Hgb Concent. 32.7 g/dl (32-36); Mean Platelet Volume 11.6 fl (6-9.5); Platelet Count 37 K/mm3 (150-450); Red Blood Count 4.06 M/mm3 (4.1-5.4); Red Cell Distribution Width 19.5 % (11.5-14.0); White Blood Count 8.9 K/mm3 (4.0-10.5)
[2017-09-27 05:52] LABS: ALBUMIN 2.9 g/dL (3.5-5.0); ALKALINE PHOSPHATASE 141 U/L (38-126); ANION GAP 11.5 MEQ/L (5-15); BLOOD UREA NITROGEN 32 mg/dL (7-17); CHLORIDE 107 mmol/L (98-107); Calcium 11.3 mg/dL (8.4-10.2); Carbon Dioxide 33 mmol/L (22-30); Glucose 254 mg/dL (74-106); SGOT/AST 69 U/L (14-36); SODIUM 147 mmol/L (137-145); Total Protein 6.6 g/dL (6.3-8.2)
[2017-09-27 05:59] LABS: SGPT/ALT 45 U/L (0-35)
[2017-09-27] MEDS ORDERED: SYNTHROID 100 MCG PO SCH (06:00)
[2017-09-27] MEDS: D5w/0.45NS W/ 40MEQ KCl 1000 Ml 1,000 ML IV SCH (06:02)
[2017-09-27 07:22] VITALS: O2SAT 91
[2017-09-27 07:47] VITALS: BP 155/90; PULSE 100
--- NOTE | 2017-09-27 08:06 | HP ---
HISTORY OF PRESENT ILLNESS: This is a 62 year-old patient with multiple medical problems including severe hypothyroidism, hyperparathyroidism, lower extremity edema and bullae status post debridement during her first hospitalization this month. She also has chronic pain which she usually follows with the pain management physician for, diabetes mellitus type 2, depression. The patient was here at our hospital from 09/13/2017 to 09/18/2017 and was discharged to [facility] for care of the wounds on her feet from large bullae. At that time she was found to be severely hypothyroid with a TSH 254. She also had some marked redness of her lower extremities and she was started on ceftriaxone and Vancomycin on 09/16/2017 that was continued through her hospitalization while she was at [facility] and then she was admitted back to the hospital on 09/23/2017 and discharged 09/24/2017. According to the automatic data processing planner, Dr. Wiseman had ordered more Vancomycin for a few more days at [facility]. They called me today and stated that she was not coherent as she had been. They complained that she continued to be incontinent during her whole stay at [facility] both times, that she would not participate in therapies. I did see the patient at [facility] on 09/21/2017 and she voiced that she wanted to go home but she was not able to take care of herself yet and still receiving IV antibiotic for her wounds and the nurses were caring for her lower extremity wound. In the emergency department on x-ray she was found to have a possible left lower lobe pneumonia and carbon dioxide level was elevated to 68. She continued to have some altered mental status and so she was admitted to the hospital for further evaluation and treatment REVIEW OF SYSTEMS: Unobtainable due to the patient's condition besides that reported in the history of present illness. PAST MEDICAL HISTORY: Arthritis of her knees. Coronary artery disease with myocardial infarction in November 2010. She has seen Dr. Holland in the past. Diabetes mellitus type 2 uncontrolled. Fibromyalgia. Hypertension. Hyperthyroidism. Obesity. Gastroesophageal reflux disease. Chronic knee and back pain. History of thrombocytopenia for which she sees Dr. Hearn for. Osteoporosis. Hyperparathyroidism which she has seen Dr. Adrien Daniel in [place] for. Neuropathy. PAST SURGICAL HISTORY: section. Cholecystectomy. Hysterectomy. Bilateral oophorectomy. Left knee replacement 07/28/2015. Right knee replacement 1988. Gastroplasty. MEDICATIONS: Please see the current medication reconciliation which I reviewed. ALLERGIES: ATROPINE, DIPHENOXYLATE, FENTANYL, PENICILLIN G. SOCIAL HISTORY: She is and usually lives at home with her . She smokes one pack per day, in the past has denied any alcohol or drug use. FAMILY HISTORY: Noncontributory. PHYSICAL EXAMINATION: VITAL SIGNS: Temperature current 98F, temperature max 98.2F, heart rate 97 to 108, respiratory rate 16 to 20, blood pressure 152/89, weight 152.5 kg. Oxygen saturation 94% on BiPAP with 50% oxygen. GENERAL: The patient is lying in bed. She will open her eyes to command. She moves all four extremities but is hesitant to move her left arm. However when her left arm is raised above her body she moves it back down to her side. HEENT: Pupils are equal and round. CVS: Heart has a regular rate and rhythm. No murmurs, gallops or rubs are appreciated. CHEST: Clear to auscultation bilaterally. No crackles or wheezes. ABDOMEN: Obese with normal bowel sounds, soft, nontender, nondistended. EXTREMITIES: She has some chronic thickening of her lower extremities with reddish discoloration from above her ankles to below her knees bilaterally. The wounds on her feet are dressed. When her dressings are removed she has well healing blisters. I will have the nurses take pictures of these. LABORATORY DATA AND TESTS: Her white blood cell count was 5.4, hematocrit 41, PLT count 29,000. Neutrophils 84%, bands 1, lymphocytes 11. The pH 7.4, pCO2 68, pO2 39. Potassium 3.4, sodium 149, carbon dioxide 35, BUN 31, calcium 12.5, bilirubin 1.9, AST 73, ALT 45. Free T4 3.17. TSH 4.2. UA with greater than 100 red blood cells, moderate bacteria, moderate mucus. A culture is ordered. Urine tox is positive for opiate. She has two blood cultures and a urine culture in lab. Chest x-ray was read as possible left lower lobe pneumonia. EKG was sinus rhythm, heart rate 97 with 1 PVC. She has poor R-wave progression. ASSESSMENT AND PLAN: 1) LEFT LOWER LOBE PNEUMONIA: She has been in a hospital setting since mid-September. I have asked the pharmacy to dose levofloxacin for. I could not use Zosyn as she is allergic to penicillin. She has been BiPAP. We are repeating the blood gas. I will ask Dr. Giovanny Covington to see the patient while she is here as well. 2) ACUTE RESPIRATORY FAILURE: Will try the BiPAP as above. 3) HYPERCALCEMIA: She has known hyperparathyroidism. The last calcium when she was discharged on 09/24/2017 was 10.9 and is 12.5 today. Will continue with fluids and plan to repeat this in the a.m. 4) HYPOTHYROIDISM: Her TSH was actually within normal limits now and free T4 is slightly high. I am going to decrease the dose of levothyroxine from 375 mcg daily to 200 mcg daily. 5) LOWER EXTREMITY WOUNDS: These appear to be healing well. Will continue with nursing care and dressing changes to these. 6) HYPERNATREMIA: This may be due to over diuresis. She was on Bumex in the detention. 7) DIABETES MELLITUS TYPE 2: Will use a low dose of sliding scale NovoLog. 8) DEPRESSION: She will need a [facility] consult. 9) HEMATURIA: Her urine culture on her last visit over this weekend was no growth so I am concerned that there may be something else going on causing the hematuria as an outpatient she will need to see an urologist. 10) CHRONIC PAIN: Will hold her chronic pain medicines at this time due to her somnolence.
[2017-09-27 08:18] LABS: BAND 10 % (0.0-2.0); Lymphocytes 9 % (24-44); Monocyte 3 % (0.0-12.0); Neutrophils 78 % (36.0-66.0); Total Cells Counted 100
[2017-09-27 08:20] LABS: Platelet Estimate DECREASED (NORMAL)
--- NOTE | 2017-09-27 09:43 | DS ---
DISCHARGE DIAGNOSES: 1) LEFT LOWER LOBE PNEUMONIA. 2) ACUTE RESPIRATORY FAILURE. 3) ALTERED MENTAL STATUS. 4) HYPERKALEMIA WITH KNOWN HYPERPARATHYROIDISM. 5) HYPOTHYROIDISM. 6) HISTORY OF CELLULITIS OF LOWER EXTREMITIES BILATERALLY RECENTLY TREATED. 7) CHRONIC PAIN. 8) HYPERNATREMIA. 9) HEMATURIA. 10) ELEVATED LIVER FUNCTION TEST. 11) THROMBOCYTOPENIA. 12) DIABETES MELLITUS TYPE 2. 13) DEPRESSION. DISCHARGE PHYSICAL EXAMINATION: VITALS: Temperature current 98.1F, temperature max 98.1F, heart rate 97 to 120, respiratory rate 22 to 24, blood pressure 142 to 158 over 77 to 95, weight 153.4 kg. Oxygen saturation 91 to 92% on 6 liters by OxyMask. GENERAL: The patient is lying in bed moaning under her breath. She will open her eyes to her name. When asked if she has pain she said "Yes". When asked if she has abdominal pain she said "No". I asked her if she can tell me where she is and she just has a low moan. CVS: She has a regular rate and rhythm. No murmurs, gallops or rubs are appreciated. CHEST: Clear to auscultation anteriorly. ABDOMEN: Distended, soft with normal bowel sounds. EXTREMITIES: She has a bandage over healing blisters on her feet. Trace edema bilaterally, some chronic skin changes from her ankles to her knees with some very mild erythema. No induration or drainage. : Yanes catheter is in place draining some reddish colored urine. HOSPITAL COURSE: 1) LEFT LOWER LOBE PNEUMONIA: She just recently finished a course of Vancomycin and ceftriaxone for her lower extremities. She was on Vancomycin from 09/15/2017 to 09/22/2017 and had another dose 09/24/2017. T ceftriaxone 09/16/2017 to 09/22/2017 and another dose 09/24/2017. I started her on Levaquin as she has an allergy to penicillin. This morning her white blood cell count still within normal limits but higher with more bands. She was on BiPAP yesterday for CO2 retention but was able to wean to 6 liters OxyMask. She had been on 4 to 5 liters in the last week or so at the shelter and when she was in the hospital on 09/23/2017 to 09/24/2017. Dr. Darin Smith was consulted as Dr. Giovanny Covington was on vacation and he declined the pulmonary consult. The Hospitalist at [facility] was contacted this morning and was willing to take the patient in transfer for further evaluation and treatment and further availability of a specialist. 2) ACUTE RESPIRATORY FAILURE: It has improved after the BiPAP. However she still needs to see a client service administrator. 3) ALTERED MENTAL STATUS: She is able to say words at this time. Her nurses report she was able to swallow her medications and she has been moving all four extremities. 4) HYPERCALCEMIA: She has known hyperparathyroidism with an adenoma and is supposed to have surgery but this has not happened yet. Her calcium was above 12.5 on admission after fluids for six and a half hours was 12.1 so I gave her a dose of calcitonin 400 international units subcutaneously x1 at approximately 2130 hours last night. Her calcium this morning was 11.3. 5) HISTORY OF HYPOTHYROIDISM: Her TSH on 09/12/2017 was 254. She was put back on her home dose of levothyroxine and on this hospital admission her TSH was 4.2 with free T4 3.1. Her home dose of levothyroxine is 375 mcg so I have decreased her dose to 200 mcg. 6) HISTORY OF CELLULITIS: Again she was treated with vancomycin and ceftriaxone. She still has open wounds on her lower extremities. 7) CHRONIC PAIN: She usually sees chronic pain specialist and is on Percocet chronically and this was scheduled at the shelter due to continued pain. 8) HYPERNATREMIA: She was given 1 liter of normal saline in the emergency room and started on a liter of fluids. In the ICU her sodium was still 149 after being on those fluids for approximately seven hours so her fluids were changed to D5 half normal saline 20 mEq potassium chloride. 9) HEMATURIA: Her urine culture over the weekend did not grow any bacteria. Urine culture so far is no growth to date. She may benefit from urology consult. 10) ELEVATED BILIRUBIN AND LIVER FUNCTION TEST: The etiology of this was unclear at this time. 11) THROMBOCYTOPENIA: This was chronic for her and she sees Dr. Hearn for follow up on this. 12) DIABETES MELLITUS TYPE 2: She has been noncompliant in the past. However, she has had poor p.o. intake and has had episodes of hypoglycemia during her first hospitalization this month so we just used a low dose sliding scale. 13) DEPRESSION: She is on Paxil but continues to have problems with her depression. DISPOSITION: The patient will be transferred to [facility] under accepting physician, Dr. Springer, Hospitalist. She will go by [facility] and he plans to admit her to their ICU.
[2017-09-27] MEDS ORDERED: ROCEPHIN 1 Gm-D5w 50 ml Bag** 1 G/50 ML IVPB IV SCH (10:00)
[2017-09-27] MEDS ORDERED: Paxil 20 MG PO SCH (10:00)
[2017-09-27] MEDS ORDERED: Colace 100 MG PO SCH (10:00)
== END 2017-09-27 10:26 | disposition short-term general hospital (02) | DRG 193 ==
LOC: ED 12:34 → OBSVTOIN 15:46 → ICU 15:46
PROVIDERS: ADMIT Internal Medicine; ATTEND Internal Medicine
DX: J18.1 Lobar pneumonia, unspecified organism (principal); J96.00 Acute respiratory failure, unspecified whether with hypoxia or hypercapnia; L03.116 Cellulitis of left lower limb; L03.115 Cellulitis of right lower limb; E87.0 Hyperosmolality and hypernatremia; R41.82 Altered mental status, unspecified; E87.5 Hyperkalemia; E21.3 Hyperparathyroidism, unspecified; E03.9 Hypothyroidism, unspecified; G89.29 Other chronic pain; F45.42 Pain disorder with related psychological factors; R31.9 Hematuria, unspecified; R79.89 Other specified abnormal findings of blood chemistry; D69.6 Thrombocytopenia, unspecified; E11.9 Type 2 diabetes mellitus without complications; F32.9 Major depressive disorder, single episode, unspecified; I25.10 Atherosclerotic heart disease of native coronary artery without angina pectoris; M17.0 Bilateral primary osteoarthritis of knee; I10 Essential (primary) hypertension; M79.7 Fibromyalgia; E66.9 Obesity, unspecified; K21.9 Gastro-esophageal reflux disease without esophagitis; Z72.0 Tobacco use
CPT/HCPCS: 36000; 36415; 36600; 70450; 71045; 80048; 80053; 80307; 81000; 82150; 82375; 82803; 82805; 82962; 83605; 83690; 83880; 84132; 84134; 84439; 84443; 85025; 85027; 87040; 87086; 93005; 93268; 94002; 94640; 94762; 94770; 96360; 96365; 99285; G0378; G0481; J0630; J0696; J1642; J1956; J3370; J3480; J7609; P9603; P9612; A9270-GY; G0480